=== PATIENT | male | born 1965 | race American Indian/Alaskan Native ===

== ENCOUNTER 2016-04-29 19:20 | Emergency (ER) | payer MEDICAID ==
[2016-04-29] MEDS ORDERED: NORCO 5/325 PO ONE (20:05)
[2016-04-29] MEDS ORDERED: CLEOCIN PO ONE (20:06)
[2016-04-29] MEDS ORDERED: VIBRAMYCIN PO ONE (20:11)
--- NOTE | 2016-04-29 20:15 | Emergency Department Report ---
HPI - General Chief Complaint: Extremity Injury, Lower Time Seen by Provider: 04/29/16 19:43 - HPI HPI: The patient is a 51-year-old male presents for evaluation of pain and swelling to the left lower leg. The patient reports constant stinging and burning in quality pain to the anterior distal left lower leg for the past 2 days, moderate in severity, and associated with redness and intermittent weeping of fluid. The patient says that he has experienced lower extremity ulcers in the past. The patient denies fever, chills, night sweats, paresthesias, decreased motor function, color change distal to the left leg area of concern. ED Past Medical Hx - Past Medical History Previous Medical History?: Yes Hx Hypertension: Yes Hx CVA: Yes (nonambulatory, left-sided hemiplegia, slurred speech) Hx Congestive Heart Failure: Yes (dilated cardiomyopathy) Hx Diabetes: Yes Hx Asthma: No Hx COPD: Yes (on home oxygen at 2L/M) Hx HIV: No - Surgical History Past Surgical History?: Yes Additional Surgical History: IVC filter - Social History Smoking Status: Current Every Day Smoker - Medications Home Medications: Home Medications Medication Instructions Recorded Confirmed Last Taken Type Albuterol *Only Ed* [Proventil 1 puff INHALATION TID PRN 01/22/13 12/27/14 Unknown History 0.5% NEBS] Atorvastatin (Nf) [Lipitor] 10 mg PO QHS 01/22/13 12/27/14 05/09/14 History Furosemide [Lasix] 40 mg PO DAILY 01/22/13 12/27/14 05/10/14 History Insulin Glargine,Hum.rec.anlog 14 units SQ QHS PRN 01/22/13 12/27/14 Unknown History [Lantus Solostar] Lisinopril [Zestril TAB] 40 mg PO QDAY 01/22/13 12/27/14 05/10/14 History levETIRAcetam [Keppra XR TAB] 500 mg PO BID 01/22/13 12/27/14 05/10/14 History ALPRAZolam [Xanax TAB] 1 mg PO BID PRN 05/10/14 12/27/14 05/10/14 History Clopidogrel [Plavix] 75 mg PO QDAY 05/10/14 12/27/14 05/10/14 History glipiZIDE [Glucotrol] 10 mg PO QDAY 05/10/14 12/27/14 05/10/14 History Furosemide [Lasix TAB] 40 mg PO DAILY #30 tablet 07/31/14 12/27/14 Unknown Rx Metoprolol [Lopressor TAB] 75 mg PO BID #60 tablet 07/31/14 12/27/14 Unknown Rx hydrALAZINE [Apresoline TAB] 50 mg PO Q8HR #90 tablet 07/31/14 12/27/14 Unknown Rx Warfarin [Coumadin] 7.5 mg PO DAILY@1700 #30 tablet 01/03/15 Unknown Rx Dicyclomine [Bentyl] 10 mg PO QID PRN #20 capsule 01/18/15 Unknown Rx Nitrofurantoin [place]/M-Cryst 100 mg PO Q12HR #13 capsule 01/18/15 Unknown Rx [Macrobid CAP] Ondansetron [Zofran Odt] 4 mg PO QID PRN #20 tab.rapdis 01/18/15 Unknown Rx oxyCODONE /ACETAMINOPHEN [Percocet 1 tab PO Q6HR PRN #20 tablet 01/21/15 Unknown Rx 5/325] Clindamycin [Clindamycin CAP] 300 mg PO TID #30 capsule 04/29/16 Unknown Rx Doxycycline Hyclate [Acticlate TAB] 75 mg PO BID #20 tablet 04/29/16 Unknown Rx HYDROcodone/APAP 7.5-325 [[place] 1 each PO Q8HR PRN #12 tablet 04/29/16 Unknown Rx 7.5-325 mg TAB] ED Review of Systems ROS: Stated complaint: WEEPING SORES Other details as noted in HPI Constitutional: denies: fever ENT: denies: throat or neck pain Respiratory: denies: cough, shortness of breath Cardiovascular: denies: chest pain Endocrine: denies unexplained weight loss or gain Gastrointestinal: denies: abdominal pain, nausea Genitourinary: denies: dysuria Musculoskeletal: reports left leg pain Skin: denies: rash Neurological: denies: headache Hematological/Lymphatic: denies: easy bleeding or easy bruising Psych: denies sadness or hopelessness Physical Exam - Physical Exam Vital Signs: Vital Signs 04/29/16 19:43 Temperature 98.6 F Pulse Rate 93 H Respiratory 18 Rate Blood Pressure 140/77 O2 Sat by Pulse 93 Oximetry Physical Exam: General: well-nourished, well-developed, no acute distress Head: Normocephalic, atraumatic Eyes: normal sclera ENT: Mucous membranes are pink and moist Neck: trachea midline, neck supple, No neck stiffness, no cervical adenopathy Respiratory: Breath sounds equal bilaterally, no wheezing, rales, or rhonchi Cardio: S1 and S2 present, no murmurs, rubs, gallops, capillary refill is brisk Abdomen: Normoactive bowel sounds, soft abdomen, no rigidity, no guarding or rebound tenderness Musc: 2 cm x 3 cm oval area of erythema present to the left distal anterior zimmerman , tender to palpation, no purulent drainage or discharge, no fluctuance Skin: No rash Neuro: no facial drooping, normal speech Psych: Normal affect ED Course Vital Signs 04/29/16 19:43 Temperature 98.6 F Pulse Rate 93 H Respiratory 18 Rate Blood Pressure 140/77 O2 Sat by Pulse 93 Oximetry ED Medical Decision Making - Medical Decision Making The patient was seen and examined by myself. The patient is placed on a monitor and storage bin tender and continuous pulse ox. On initial evaluation, the patient was found to be in no distress. Evaluation orders were placed. The patient given a Tylenol of [place] for his pain and clindamycin and doxycycline for treatment of cellulitis. The patient was reevaluated and reported that their symptoms were markedly improved. The patient is stable for discharge with outpatient follow- up. The patient is given follow-up and return instructions. The patient expressed understanding and agreed with the plan. The patient is discharged in stable condition. Critical care attestation.: If time is entered above; I have spent that time in minutes in the direct care of this critically ill patient, excluding procedure time. ED Disposition Clinical Impression: Cellulitis of left anterior lower leg Disposition: DISCHARGED TO HOME OR SELFCARE Is pt being admited?: No Does the pt Need Aspirin: No Condition: Stable Instructions: Cellulitis (ED) Prescriptions: Clindamycin [Clindamycin CAP] 300 mg PO TID #30 capsule Doxycycline Hyclate [Acticlate TAB] 75 mg PO BID #20 tablet HYDROcodone/APAP 7.5-325 [[place] 7.5-325 mg TAB] 1 each PO Q8HR PRN #12 tablet PRN Reason: Pain Referrals: PRIMARY CARE, [Primary Care Provider] - 3-5 Days Time of Disposition: 20:11
[2016-04-29] MEDS ORDERED: NORCO 5/325 ONE (22:25)
[2016-04-29] MEDS ORDERED: VIBRAMYCIN ONE (22:28)
[2016-04-29 23:52] VITALS: BP 178/96
== END 2016-04-30 00:08 | disposition home or self-care (01) ==
LOC: ED 19:20
DX: L02.416 Cutaneous abscess of left lower limb (principal); I10 Essential (primary) hypertension; Z86.73 Personal history of transient ischemic attack (TIA), and cerebral infarction without residual deficits; E11.9 Type 2 diabetes mellitus without complications; I42.9 Cardiomyopathy, unspecified; F17.200 Nicotine dependence, unspecified, uncomplicated; Z79.4 Long term (current) use of insulin
CPT/HCPCS: 99283

== ENCOUNTER 2016-10-10 20:27 | Inpatient (IN) | payer MEDICAID ==
[2016-10-10 21:21] LABS: Bilirubin,Urine NEG (Negative); Blood,Urine SM (Negative); Ketones,Urine NEG (Negative); Leukocyte Esterase,Urine NEG (Negative); Nitrite,Urine NEG (Negative)
[2016-10-10 21:22] LABS: Protein,Urine >500 mg/dL (Negative)
[2016-10-10 21:39] LABS: Basophils % (Auto) 0.9 % (0.0-1.8); Eosinophils % (Auto) 6.8 % (0.0-4.3); Hemoglobin 13.4 gm/dl (11.8-15.2); Mean Corpuscular HGB Conc 33 % (32-34); Mean Corpuscular Hemoglobin 29 pg (28-32); Mean Corpuscular Volume 90 fl (84-94); Platelet Count 186 K/mm3 (140-440); Red Blood Count 4.59 M/mm3 (3.65-5.03); Red Cell Distribution Width 14.9 % (13.2-15.2)
--- NOTE | 2016-10-10 21:49 | Emergency Department Report ---
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 Patient has a history of dilated cardiomyopathy, COPD, previous history of CVA with left- sided hemiplegia and chronic slurred speech, insulin and diabetes and hypertension. He denies any shortness of breath, chest pain, fever. He has not taken anything and was not given anything for her symptoms prior to presentation. No recent travel or sick contacts at home. ED Past Medical Hx - Past Medical History Hx Hypertension: Yes Hx CVA: Yes (nonambulatory, left-sided hemiplegia, slurred speech) Hx Congestive Heart Failure: Yes (dilated cardiomyopathy) Hx Diabetes: Yes Hx Asthma: No Hx COPD: Yes (on home oxygen at 2L/M) Hx HIV: No - Surgical History Additional Surgical History: IVC filter - Social History Smoking Status: Never Smoker Substance Use Type: None - Medications Home Medications: Home Medications Medication Instructions Recorded Confirmed Last Taken Type Albuterol *Only Ed* [Proventil 1 puff INHALATION TID PRN 01/22/13 10/11/16 Unknown History 0.5% NEBS] Atorvastatin (Nf) [Lipitor] 10 mg PO QHS 01/22/13 10/11/16 05/09/14 History Furosemide [Lasix] 40 mg PO DAILY 01/22/13 10/11/16 05/10/14 History Insulin Glargine,Hum.rec.anlog 14 units SQ QHS PRN 01/22/13 10/11/16 Unknown History [Lantus Solostar] Lisinopril [Zestril TAB] 40 mg PO QDAY 01/22/13 10/11/16 05/10/14 History levETIRAcetam [Keppra XR TAB] 500 mg PO BID 01/22/13 10/11/16 05/10/14 History ALPRAZolam [Xanax TAB] 1 mg PO BID PRN 05/10/14 10/11/16 05/10/14 History Clopidogrel [Plavix] 75 mg PO QDAY 05/10/14 10/11/16 05/10/14 History glipiZIDE [Glucotrol] 10 mg PO QDAY 05/10/14 10/11/16 05/10/14 History Metoprolol [Lopressor TAB] 75 mg PO BID #60 tablet 07/31/14 10/11/16 Unknown Rx hydrALAZINE [Apresoline TAB] 50 mg PO Q8HR #90 tablet 07/31/14 10/11/16 Unknown Rx Warfarin [Coumadin] 7.5 mg PO DAILY@1700 #30 tablet 01/03/15 10/11/16 Unknown Rx Dicyclomine [Bentyl] 10 mg PO QID PRN #20 capsule 01/18/15 10/11/16 Unknown Rx Nitrofurantoin [place]/M-Cryst 100 mg PO Q12HR #13 capsule 01/18/15 10/11/16 Unknown Rx [Macrobid CAP] Ondansetron [Zofran Odt] 4 mg PO QID PRN #20 tab.rapdis 01/18/15 10/11/16 Unknown Rx oxyCODONE /ACETAMINOPHEN [Percocet 1 tab PO Q6HR PRN #20 tablet 01/21/15 Unknown Rx 5/325] Clindamycin [Clindamycin CAP] 300 mg PO TID #30 capsule 04/29/16 10/11/16 Unknown Rx Doxycycline Hyclate [Acticlate TAB] 75 mg PO BID #20 tablet 04/29/16 10/11/16 Unknown Rx HYDROcodone/APAP 7.5-325 [[place] 1 each PO Q8HR PRN #12 tablet 04/29/16 10/11/16 Unknown Rx 7.5-325 mg TAB] ED Review of Systems ROS: Stated complaint: HYPERGLYCEMIA Other details as noted in HPI Comment: All other systems reviewed and negative Constitutional: denies: chills, fever Eyes: denies: eye pain, eye discharge, vision change ENT: denies: ear pain, throat pain Respiratory: denies: cough, shortness of breath, wheezing Cardiovascular: edema. denies: chest pain, palpitations Gastrointestinal: denies: abdominal pain, nausea, diarrhea Genitourinary: denies: urgency, dysuria Musculoskeletal: denies: back pain, joint swelling, arthralgia Skin: denies: rash, lesions Neurological: denies: headache, weakness, paresthesias Physical Exam - Physical Exam Vital Signs: Vital Signs 10/10/16 10/10/16 20:46 21:11 Temperature 98.3 F Pulse Rate 84 Respiratory 20 20 Rate Blood Pressure 158/92 Blood Pressure 158/92 [Left] O2 Sat by Pulse 95 95 Oximetry Physical Exam: GENERAL: The patient is well-developed well-nourished. HEENT: Normocephalic. Atraumatic. Extraocular motions are intact. Patient has moist mucous membranes. Pupils equal reactive to light bilaterally. NECK: Supple. Trachea is midline. CHEST/LUNGS: Clear to auscultation. There is no respiratory distress noted. HEART/CARDIOVASCULAR: Regular. There is no tachycardia. There is no gallop rub or murmur. ABDOMEN: Abdomen is soft, nontender. Patient has normal bowel sounds. There is no abdominal distention. SKIN: There is 2-3+ pitting edema that is worse on the left side. NEURO: The patient is awake, alert. The patient is cooperative. The patient has no acute focal neurologic deficits. Patient has some slurred speech but it is chronic. MUSCULOSKELETAL: There is no tenderness or deformity. Patient has chronic hemiplegia. There is no evidence of acute injury. ED Course Vital Signs 10/10/16 10/10/16 20:46 21:11 Temperature 98.3 F Pulse Rate 84 Respiratory 20 20 Rate Blood Pressure 158/92 Blood Pressure 158/92 [Left] O2 Sat by Pulse 95 95 Oximetry ED Medical Decision Making - Lab Data Result diagrams: 10/11/16 11:34 10/11/16 Unknown - EKG Data -: EKG Interpreted by Me EKG shows normal: sinus rhythm, axis, intervals, QRS complexes, ST-T waves ( there is some mild ST depressions and T-wave inversions to the inferior and lateral leads that are unchanged from previous) Rate: normal - EKG Data When compared to previous EKG there are: no significant change Interpretation: unchanged when compared t (12/27/14) - Radiology Data Radiology results: report reviewed, image reviewed interpreted by me: Chest x-ray shows some cardiomegaly but there is no pleural effusions or obvious pneumonia. Bilateral lower extremity DVT shows an acute right DVT Starting in the right common femoral vein and going down through the popliteal into the posterior tibial vein. There are also multiple chronic DVT seen. - Medical Decision Making This patient presented with complaint of hyperglycemia and lower extremity swelling. He has a history of DVT and PE and is unemployed 22nd or 2 previous CVA. He does not appear to have any exacerbation of CHF as there is no shortness of breath, no pleural effusions and his BNP is about 300. He did have elevated blood sugar at about 370 but was given a dose of subcutaneous insulin and it came down to a reasonable level. There is no signs of DKA or HHNK. However the patient was subtherapeutic on his Coumadin with an INR less than 1. I arranged for the patient to have a venous Doppler done in the morning with the instructions that if it was positive he would be admitted and if negative he could be discharged home. He was found to have a right-sided DVT from the common femoral down to the posterior tibial. Patient was admitted for further evaluation and treatment. - Differential Diagnosis DVT, CHF, DKA, HHNK Critical Care Time: No Critical care attestation.: If time is entered above; I have spent that time in minutes in the direct care of this critically ill patient, excluding procedure time. 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
[2016-10-10 22:10] LABS: Anion Gap 18 mmol/L; Blood Urea Nitrogen 7 mg/dL (9-20); Calcium 8.8 mg/dL (8.4-10.2); Carbon Dioxide 21 mmol/L (22-30); Chloride 98.3 mmol/L (98-107); Glucose 387 mg/dL (75-100); Potassium 3.4 mmol/L (3.6-5.0); Sodium 134 mmol/L (137-145)
[2016-10-11 01:25] LABS: INR 0.95 (0.87-1.13)
[2016-10-11 01:26] LABS: Partial Thromboplastin Time 27.7 Sec. (24.2-36.6)
[2016-10-11] MEDS ORDERED: APRESOLINE PO ONE (06:13)
[2016-10-11] MEDS ORDERED: LOPRESSOR IV ONE ×2 (08:12)
--- NOTE | 2016-10-11 09:23 | XRay Report ---
AP CHEST : 10/10/16 20:27:00 CLINICAL: Hypertension. COMPARISON:12/27/14 FINDINGS: Cardiomegaly and central vascular congestion. The lungs are normally expanded and clear. The bones and soft tissues are unremarkable. IMPRESSION: Cardiomegaly and pulmonary venous hypertension. No pulmonary edema.
[2016-10-11] MEDS ORDERED: HEPARIN 10,000 UNITS/10 ML IV ONE (11:08)
[2016-10-11 12:00] LABS: Hematocrit 39.9 % (35.5-45.6); Hemoglobin 12.9 gm/dl (11.8-15.2)
[2016-10-11 12:12] LABS: INR 0.96 (0.87-1.13)
[2016-10-11 12:13] LABS: Partial Thromboplastin Time 26.9 Sec. (24.2-36.6)
[2016-10-11] MEDS ORDERED: D50W (25GM) IV PRN (12:43)
[2016-10-11] MEDS ORDERED: PERCOCET 5/325 PO PRN ×2 (12:53→13:12)
[2016-10-11] MEDS ORDERED: NORCO 7.5/325 PO PRN (12:53)
[2016-10-11] MEDS ORDERED: NON-FORMULARY (Insulin Glargine,Hum.Rec.Anlog [Lantus Solostar] 15 UNITS) SQ PRN (12:53)
[2016-10-11] MEDS ORDERED: XANAX PO PRN (12:53)
[2016-10-11] MEDS ORDERED: LOPRESSOR PO SCH ×2 (13:00→14:00)
[2016-10-11] MEDS ORDERED: LOPRESSOR ONE (13:10)
[2016-10-11] MEDS ORDERED: MACROBID ONE (13:11)
[2016-10-11] MEDS ORDERED: HEPARIN 10,000 UNITS/10 ML ONE (13:13)
[2016-10-11] MEDS ORDERED: HEPARIN/ 0.45% NACL-25,000 UNIT/500 ML 25,000 UNIT/500 ML BAG ONE (13:15)
[2016-10-11] MEDS ORDERED: NACL 0.45% 1000 ML 1,000 ML IV ONE (13:16)
--- NOTE | 2016-10-11 13:22 | History and Physical Report ---
History of Present Illness Date of examination: 10/11/16 Date of admission: 10/11/16 12:57 Chief complaint: pain in the legs - 1 day History of present illness: Patient is a 16-year-old -Citizen Of [place] male who was a history of cerebrovascular accident 10 with left hemiplegia and chronic slow speech, COPD on home oxygen at 2 L/min, CHF, hypertension, diabetes mellitus and severe dysphagia having pain and swelling in both lower extremities. 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 Patient was brought to the emergency department. Venous Dopplers of lower extremities showed an acute DVT in the right common femoral and superficial femoral veins extending to the popliteal. Patient denies any chest pain or shortness of breath. No proximal nocturnal dyspnea. No orthopnea paroxysmal nocturnal dyspnea. Admission was therefore requested. Past History Past Medical History: CAD, COPD, diabetes, hypertension, hyperlipidemia, stroke Past Surgical History: Other Social history: smoking. denies: alcohol abuse, prescription drug abuse Medications and Allergies Allergies Allergy/AdvReac Type Severity Reaction Status Date / Time No Known Allergies Allergy Unverified 01/22/13 16:47 Home Medications Medication Instructions Recorded Confirmed Last Taken Type Albuterol *Only Ed* [Proventil 1 puff INHALATION TID PRN 01/22/13 10/11/16 Unknown History 0.5% NEBS] Atorvastatin (Nf) [Lipitor] 10 mg PO QHS 01/22/13 10/11/16 05/09/14 History Furosemide [Lasix] 40 mg PO DAILY 01/22/13 10/11/16 05/10/14 History Insulin Glargine,Hum.rec.anlog 14 units SQ QHS PRN 01/22/13 10/11/16 Unknown History [Lantus Solostar] Lisinopril [Zestril TAB] 40 mg PO QDAY 01/22/13 10/11/16 05/10/14 History levETIRAcetam [Keppra XR TAB] 500 mg PO BID 01/22/13 10/11/16 05/10/14 History ALPRAZolam [Xanax TAB] 1 mg PO BID PRN 05/10/14 10/11/16 05/10/14 History Clopidogrel [Plavix] 75 mg PO QDAY 05/10/14 10/11/16 05/10/14 History glipiZIDE [Glucotrol] 10 mg PO QDAY 05/10/14 10/11/16 05/10/14 History Metoprolol [Lopressor TAB] 75 mg PO BID #60 tablet 07/31/14 10/11/16 Unknown Rx hydrALAZINE [Apresoline TAB] 50 mg PO Q8HR #90 tablet 07/31/14 10/11/16 Unknown Rx Warfarin [Coumadin] 7.5 mg PO DAILY@1700 #30 tablet 01/03/15 10/11/16 Unknown Rx Dicyclomine [Bentyl] 10 mg PO QID PRN #20 capsule 01/18/15 10/11/16 Unknown Rx Nitrofurantoin [place]/M-Cryst 100 mg PO Q12HR #13 capsule 01/18/15 10/11/16 Unknown Rx [Macrobid CAP] Ondansetron [Zofran Odt] 4 mg PO QID PRN #20 tab.rapdis 01/18/15 10/11/16 Unknown Rx oxyCODONE /ACETAMINOPHEN [Percocet 1 tab PO Q6HR PRN #20 tablet 01/21/15 Unknown Rx 5/325] Clindamycin [Clindamycin CAP] 300 mg PO TID #30 capsule 04/29/16 10/11/16 Unknown Rx Doxycycline Hyclate [Acticlate TAB] 75 mg PO BID #20 tablet 04/29/16 10/11/16 Unknown Rx HYDROcodone/APAP 7.5-325 [[place] 1 each PO Q8HR PRN #12 tablet 04/29/16 10/11/16 Unknown Rx 7.5-325 mg TAB] Active Meds: Active Medications Acetaminophen/Hydrocodone Bitart ([place] 7.5/325) 1 each PO Q8HR PRN PRN Reason: Pain Alprazolam (Xanax) 1 mg PO BID PRN PRN Reason: Anxiety Atorvastatin Calcium (Lipitor) 10 mg PO QHS JAVED Clindamycin HCl (Cleocin) 300 mg PO TID JAVED Clopidogrel Bisulfate (Plavix) 75 mg PO QDAY JAVED Dextrose (D50w (25gm)) 50 ml IV PRN PRN PRN Reason: Hypoglycemia Glipizide (Glucotrol) 10 mg PO QDDIAB JAVED Hydralazine HCl (Apresoline) 50 mg PO Q8HR [facility] Heparin Sodium/Sodium Chloride (Heparin/ 0.45% Nacl-25,000 Unit/500 Ml) 25,000 unit in 500 mls @ 30 mls/hr IV TITR JAVED; 1,500 UNITS/HR PRN Reason: Protocol Sodium Chloride (Nacl 0.45% 1000 Ml) 1,000 mls @ 100 mls/hr IV DIRECT JAVED Insulin Aspart (Novolog) 0 units SUB-Q ACHS JAVED PRN Reason: Protocol Insulin Detemir (Levemir) 15 units SUB-Q QHS PRN PRN Reason: HYPERGLYCEMIA Lisinopril (Zestril) 40 mg PO QDAY JAVED Metoprolol Tartrate (Lopressor) 75 mg PO BID JAVED Miscellaneous Medication (Levetiracetam [Keppra Xr Tab]) 500 mg PO BID JAVED Nitrofurantoin Macrocrystals (Macrobid) 100 mg PO Q12HR JAVED Oxycodone/Acetaminophen (Percocet 5/325) 1 tab PO Q6H PRN PRN Reason: Pain Review of systems Constitutional: Well Nouridhed and Well developed. Head: NC/ AT Eyes: Denies any visual impairments. No discharge from the eyes Nose: Denies any rhinorrhea or epistaxis Throats: Denies any post nasal drainage. Ears: Denies any hearing deficits Cardiovascular system: Denies any chest pain, shortness of breath, orthopnea, paroxysmal nocturnal dyspnea, or palpitation. Respiratory system: Denies any cough, difficulty breathing, wheezing, pleuritic chest pain, Gastrointestinal system: Denies any abdominal pain, nausea vomiting, hematemesis or melena. Neurological system: Denies any headache, slurred speech, facial droop, lateralizing weakness Genitalia system: Denies any dysuria, urinary frequency or urgency, urethral discharge Skin: No rashes, hyperpigmented spots. Hematological: Denies any cervical tenderness hemorrhages or petechia. Immunological: Denies any multiple septic spots, Lymphatic: Denies any generalized lymphadenopathy. Endocrine: Denies any polyuria, polydipsia, polyphagia. No heat or cold intolerance. Musculoskeletal system: Swelling of both lower extremities with pain . Psych: No visual, tactile, auditory or hallucination Exam - Constitutional Vitals: Temp Pulse Resp BP Pulse Ox 98.6 F 70 10 L 184/106 98 10/11/16 08:30 10/11/16 12:50 10/11/16 12:50 10/11/16 12:50 10/11/16 12:50 General appearance: Present: no acute distress, well-nourished - EENT Eyes: Present: PERRL ENT: hearing intact, clear oral mucosa - Neck Neck: Present: supple, normal ROM - Respiratory Respiratory effort: normal Respiratory: bilateral: CTA - Cardiovascular Heart Sounds: Present: S1 & S2. Absent: rub, click - Extremities Extremities: pulses symmetrical, No edema Peripheral Pulses: within normal limits - Abdominal General gastrointestinal: Present: soft, non-tender, non-distended, normal bowel sounds Male genitourinary: Present: normal - Integumentary Integumentary: Present: clear, warm, dry - Musculoskeletal Musculoskeletal: gait normal, strength equal bilaterally - Psychiatric Psychiatric: appropriate mood/affect, intact judgment & insight - Neurologic Neurologic: CNII-XII intact, moves all extremities Results - Labs CBC & Chem 7: 10/11/16 11:34 10/10/16 21:06 Assessment and Plan - Acute DVT of the left common femoral, especially femoral and popliteal veins. Chronic DVT of the right femoral vein - Chronic obstructive pulmonary disease - Old stroke with residual left hemiplegia and chronic dysphagia - Hypertension- Plan Admit patient to telemetry Commence patient is heparin drip, obtain PT PTT INR Bronchodilators with oxygen to maintain his other (94 Continue patient on low-dose aspirin because of his multiple stroke Commence oral home antihypertensives medication GI prophylaxis with Pepcid. Patient already on heparin drip that was have also asked DVT prophylaxis Spent 32 minutes during this admission process and direct patient care evaluation of laboratory and radiological data and explanation of management plan to the patient
[2016-10-11] MEDS: HEPARIN/ 0.45% NACL-25,000 UNIT/500 ML 25,000 UNIT/500 ML BAG IV SCH (13:27)
[2016-10-11] MEDS: MACROBID PO SCH ×2 (13:35→23:08)
[2016-10-11] MEDS: PLAVIX PO SCH (13:35)
[2016-10-11] MEDS ORDERED: NACL 0.45% 1000 ML 1,000 ML IV SCH (14:00)
[2016-10-11] MEDS ORDERED: APRESOLINE PO SCH (14:00)
[2016-10-11 14:54] LABS: Albumin 2.7 g/dL (3.9-5); Albumin/Globulin Ratio 0.7 %; Alkaline Phosphatase 107 units/L (35-129); Blood Urea Nitrogen 5 mg/dL (9-20); Calcium 8.4 mg/dL (8.4-10.2); Carbon Dioxide 21 mmol/L (22-30); Glucose 181 mg/dL (75-100); Sodium 138 mmol/L (137-145); Total Protein 6.6 g/dL (6.3-8.2)
[2016-10-11 14:57] LABS: Alanine Aminotransferase 14 units/L (7-56); Anion Gap 17 mmol/L; Potassium 3.9 mmol/L (3.6-5.0)
[2016-10-11] MEDS: PROVENTIL IH SCH ×2 (16:27→23:30)
[2016-10-11] MEDS: CLEOCIN PO SCH ×2 (17:09→22:12)
[2016-10-11] MEDS: PEPCID IV SCH (17:10)
[2016-10-11] MEDS: GLUCOTROL PO SCH (17:10)
[2016-10-11] MEDS: KEPPRA PO SCH ×2 (17:10→22:11)
[2016-10-11] MEDS: NOVOLOG SUB-Q SCH ×2 (17:22→23:08)
[2016-10-11] MEDS ORDERED: K-DUR PO ONE (17:30)
[2016-10-11] MEDS ORDERED: CATAPRES PO SCH (18:00)
[2016-10-11] MEDS ORDERED: NACL ONE (19:30)
[2016-10-11] MEDS ORDERED: LEVEMIR SUB-Q PRN (22:00)
[2016-10-11] MEDS: APRESOLINE PO SCH (22:11)
[2016-10-11] MEDS: LEVEMIR SUB-Q SCH (23:07)
[2016-10-11] MEDS: LOPRESSOR PO SCH (23:13)
[2016-10-12] MEDS: HEPARIN/ 0.45% NACL-25,000 UNIT/500 ML 25,000 UNIT/500 ML BAG IV SCH ×2 (06:17→23:22)
[2016-10-12] MEDS: NOVOLOG SUB-Q SCH ×4 (07:35→22:19)
[2016-10-12] MEDS: PROVENTIL IH SCH ×2 (08:36→16:43)
[2016-10-12] MEDS: LOPRESSOR PO SCH ×3 (10:01→21:20)
[2016-10-12] MEDS: APRESOLINE PO SCH ×3 (10:01→21:19)
[2016-10-12] MEDS: PEPCID IV SCH (10:03)
[2016-10-12] MEDS: KEPPRA PO SCH ×2 (10:04→21:20)
[2016-10-12] MEDS: GLUCOTROL PO SCH (10:04)
[2016-10-12] MEDS: ZESTRIL PO SCH (10:04)
[2016-10-12] MEDS: PLAVIX PO SCH (10:04)
[2016-10-12] MEDS: MACROBID PO SCH ×2 (10:04→21:19)
[2016-10-12] MEDS: CLEOCIN PO SCH ×3 (10:04→21:19)
[2016-10-12 13:16] LABS: INR 1.12 (0.87-1.13)
[2016-10-12 13:24] LABS: Alanine Aminotransferase 12 units/L (7-56); Albumin 2.8 g/dL (3.9-5); Albumin/Globulin Ratio 0.8 %; Alkaline Phosphatase 96 units/L (35-129); Anion Gap 15 mmol/L; BUN/Creatinine Ratio 6.66; Blood Urea Nitrogen 4 mg/dL (9-20); Calcium 7.9 mg/dL (8.4-10.2); Carbon Dioxide 23 mmol/L (22-30); Glucose 184 mg/dL (75-100); Potassium 3.3 mmol/L (3.6-5.0); Sodium 138 mmol/L (137-145); Total Protein 6.1 g/dL (6.3-8.2)
--- NOTE | 2016-10-12 15:49 | Progress Note ---
Assessment and Plan Assessment and plan: --Acute DVT on the right CFV lower extremity; chronic DVT on the left CFV lower extremity Continue heparin drip per protocol, elevate the limb and supportive care Check CT angiogram of the chest to rule out PE --History of COPD; well compensated, oxygen nebulizers and IV steroids and antibiotics and supportive care --History of CVA with residual weakness, left hemiparesis and chronic dysphagia Continue current management --Hypertension; moderate control, resume home antihypertensives and when necessary medications --Type 2 diabetes mellitus; moderate control, Accu-Chek sliding scale coverage and ADA diet and insulin as needed, hemoglobin A1c --DVT prophylaxis, patient is already on heparin drip Closely monitor the patient and adjust management Follow CT angiogram of the chest, if abnormal consult interventional, vascular, hematology oncologist as needed --Full CODE STATUS Heart a CT angiogram chest, we will consider long-term Eliquis on Coumadin --Discharge planning. per Case management Patient's condition treatment plan discussed in detail with the patient as well as his nurse Medical records reviewed History Interval history: Patient seen and evaluated in his room this morning medical records reviewed Feels slightly better, alert awake oriented 3 not in acute distress Vitals reviewed Hospitalist Physical - Constitutional Vitals: Temp Pulse Resp BP Pulse Ox 98.2 F 56 L 20 155/90 100 10/12/16 12:28 10/12/16 12:28 10/12/16 12:28 10/12/16 12:28 10/12/16 08:55 General appearance: Present: mild distress, well-nourished - EENT Eyes: Present: PERRL, EOM intact - Neck Neck: Present: supple, normal ROM - Respiratory Respiratory effort: normal Respiratory: negative: rales, rhonchi, wheezing - Cardiovascular Rhythm: regular Heart Sounds: Present: S1 & S2 - Extremities Extremities: no ischemia, No edema - Abdominal General gastrointestinal: soft, non-tender, non-distended, normal bowel sounds - Integumentary Integumentary: Present: clear, warm - Psychiatric Psychiatric: appropriate mood/affect, cooperative - Neurologic Neurologic: CNII-XII intact, moves all extremities Results - Labs CBC & Chem 7: 10/11/16 11:34 10/12/16 12:47 Labs: Laboratory Last Values WBC 4.0 K/mm3 (4.5-11.0) L 10/10/16 21:06 RBC 4.59 M/mm3 (3.65-5.03) 10/10/16 21:06 Hgb 12.9 gm/dl (11.8-15.2) 10/11/16 11:34 Hct 39.9 % (35.5-45.6) 10/11/16 11:34 MCV 90 fl (84-94) 10/10/16 21:06 MCH 29 pg (28-32) 10/10/16 21:06 MCHC 33 % (32-34) 10/10/16 21:06 RDW 14.9 % (13.2-15.2) 10/10/16 21:06 Plt Count 170 K/mm3 (140-440) 10/11/16 11:34 Lymph % (Auto) 28.1 % (13.4-35.0) 10/10/16 21:06 [place] % (Auto) 12.4 % (0.0-7.3) H 10/10/16 21:06 Eos % (Auto) 6.8 % (0.0-4.3) H 10/10/16 21:06 Baso % (Auto) 0.9 % (0.0-1.8) 10/10/16 21:06 Lymph # 1.1 K/mm3 (1.2-5.4) L 10/10/16 21:06 [place] # 0.5 K/mm3 (0.0-0.8) 10/10/16 21:06 Eos # 0.3 K/mm3 (0.0-0.4) 10/10/16 21:06 Baso # 0.0 K/mm3 (0.0-0.1) 10/10/16 21:06 Seg Neutrophils % 51.8 % (40.0-70.0) 10/10/16 21:06 Seg Neutrophils # 2.1 K/mm3 (1.8-7.7) 10/10/16 21:06 PT 15.0 Sec. (12.2-14.9) H 10/12/16 12:47 INR 1.12 (0.87-1.13) 10/12/16 12:47 APTT 26.9 Sec. (24.2-36.6) 10/11/16 11:34 Heparin Anti-Xa Level 0.54 U.I./ml (0.3-0.7) 10/11/16 19:52 VBG pH 7.368 (7.320-7.420) 10/10/16 21:30 Sodium 138 mmol/L (137-145) 10/12/16 12:47 Potassium 3.3 mmol/L (3.6-5.0) L 10/12/16 12:47 Chloride 103.0 mmol/L (98-107) 10/12/16 12:47 Carbon Dioxide 23 mmol/L (22-30) 10/12/16 12:47 Anion Gap 15 mmol/L 10/12/16 12:47 BUN 4 mg/dL (9-20) L 10/12/16 12:47 Creatinine 0.6 mg/dL (0.8-1.5) L 10/12/16 12:47 Estimated GFR > 60 ml/min 10/12/16 12:47 BUN/Creatinine Ratio 6.66 % 10/12/16 12:47 Glucose 184 mg/dL (75-100) H 10/12/16 12:47 POC Glucose 191 (70-105) H 10/12/16 11:21 Hemoglobin A1c 11.5 % (4-6) H 10/11/16 11:34 Calcium 7.9 mg/dL (8.4-10.2) L 10/12/16 12:47 Total Bilirubin 1.90 mg/dL (0.1-1.2) H 10/12/16 12:47 AST 15 units/L (5-40) 10/12/16 12:47 ALT 12 units/L (7-56) 10/12/16 12:47 Alkaline Phosphatase 96 units/L (35-129) 10/12/16 12:47 NT-Pro-B Natriuret Pep 382.2 pg/mL (0-900) 10/10/16 21:06 Total Protein 6.1 g/dL (6.3-8.2) L 10/12/16 12:47 Albumin 2.8 g/dL (3.9-5) L 10/12/16 12:47 Albumin/Globulin Ratio 0.8 % 10/12/16 12:47 Triglycerides 77 mg/dL (2-149) 10/11/16 Unknown Cholesterol 155 mg/dL (50-199) 10/11/16 Unknown LDL Cholesterol Direct 87 mg/dL (50-130) 10/11/16 Unknown HDL Cholesterol 53 mg/dL (40-59) 10/11/16 Unknown Cholesterol/HDL Ratio 2.92 % 10/11/16 Unknown Urine Color Yellow (Yellow) 10/10/16 21:10 Urine Turbidity Clear (Clear) 10/10/16 21:10 Urine pH 5.0 (5.0-7.0) 10/10/16 21:10 Ur Specific [place] 1.031 (1.003-1.030) H 10/10/16 21:10 Urine Protein >500 mg/dL (Negative) 10/10/16 21:10 Urine Glucose (UA) >=500 mg/dL (Negative) 10/10/16 21:10 Urine Ketones Neg mg/dL (Negative) 10/10/16 21:10 Urine Blood Sm (Negative) 10/10/16 21:10 Urine Nitrite Neg (Negative) 10/10/16 21:10 Urine Bilirubin Neg (Negative) 10/10/16 21:10 Urine Urobilinogen 4.0 mg/dL (<2.0) 10/10/16 21:10 Ur Leukocyte Esterase Neg (Negative) 10/10/16 21:10 Urine WBC (Auto) 1.0 /HPF (0.0-6.0) 10/10/16 21:10 Urine RBC (Auto) 1.0 /HPF (0.0-6.0) 10/10/16 21:10 U Epithel Cells (Auto) < 1.0 /HPF (0-13.0) 10/10/16 21:10 Urine Creatinine 171.2 mg/dL (0.1-20.0) H 10/11/16 13:30 Urine Microalbumin 333.9 mg/dL (0.1-34.0) H 10/11/16 13:30 Microalb/Creat Ratio 1950.3 ug/mg 10/11/16 13:30
[2016-10-12 19:15] LABS: Hemoglobin 13.6 gm/dl (11.8-15.2); Mean Corpuscular HGB Conc 32 % (32-34); Mean Corpuscular Hemoglobin 29 pg (28-32); Mean Corpuscular Volume 90 fl (84-94); Platelet Count 166 K/mm3 (140-440); Red Blood Count 4.69 M/mm3 (3.65-5.03); Red Cell Distribution Width 14.7 % (13.2-15.2); White Blood Count 4.3 K/mm3 (4.5-11.0)
[2016-10-12] MEDS ORDERED: PROVENTIL IH PRN (20:44)
[2016-10-12] MEDS: LEVEMIR SUB-Q SCH (22:20)
--- NOTE | 2016-10-13 04:37 | Admit Criteria Form ---
Admission Criteria Documentation: HYPERTENSION Clinical Indications for Admission to Inpatient Care ( [place]/check or initial the applicable condition/criteria) Admission is indicated for 1 or more of the following(1)(2)(3)(4)(5)(6)(7)(8)(9) (10): [ ]I. Hypertensive emergency, with evidence of acute and progressing target organ disease as indicated by 1 or more of the following: [ ]a) Hypertensive encephalopathy (e.g., confusion, altered mental status) (11) [ ]b) Cerebral infarction [ ]c) Intracranial hemorrhage [ ]d) Myocardial ischemia or infarction [ ]e) Heart failure (eg. Pulmonary edema) [ ]f) Aortic dissection [ ]g) Increased creatinine (new) with reduction of more than 50% in estimated glomerular filtration rate from baseline [ ]h) Seizure [ ]i) Papilledema [ ]j) Retinal hemorrhage [ ]k) Microangiopathic hemolytic anemia [ ]l) Other significant finding secondary to hypertension [ ]II. Adrenergic or sympathomimetic crisis (e.g., severe hypertension due to pheochromocytoma crisis, cocaine, phencyclindine, or amphetamine intoxication, or clonidine withdrawal) [X]III. Severe hypertension (SBP greater than 180 mmHg or DBP greater than 110 mmHg or greater than the 95th percentile for age, gender, and height in pediatric patients) that cannot be controlled (e.g., to SBP less than 160 mmHg and DBP less than 100 mmHg in adults) by treatment with oral medication in emergency department or observation care (12) Extended stay beyond goal length of staymay be needed for(21)(22): [ ]a) Persistent hypertensive encephalopathy [ ]b) Continuation of pulmonary edema [ ]c) Recurring or persistent severe hypertension [ ]d) Target organ damage (eg, angina, stroke, aortic dissection) The original [employer] content created by [employer] has been revised. The portions of the content which have been revised are identified through the use of italic text or in bold, and [employer] has neither reviewed nor approved the modified material. All other unmodified content is copyright [employer]. Please see references footnoted in the original [employer] edition 2016 Admission Criteria Met: Yes
[2016-10-13 06:50] LABS: Hematocrit 37.7 % (35.5-45.6); Hemoglobin 12.6 gm/dl (11.8-15.2)
[2016-10-13] MEDS: NOVOLOG SUB-Q SCH ×4 (07:30→23:43)
--- NOTE | 2016-10-13 08:02 | Progress Note ---
Assessment and Plan Assessment and plan: --Acute DVT on the right CFV lower extremity; chronic DVT on the left CFV lower extremity Continue heparin drip per protocol, elevate the limb and supportive care CT angiogram negative for acute PE, check hypercoagulable panel And start on oral anticoagulants tomorrow --History of COPD; well compensated, oxygen nebulizers and IV steroids and antibiotics and supportive care --History of CVA with residual weakness, left hemiparesis and chronic dysphagia Continue current management --Hypertension; moderate control, resume home antihypertensives and when necessary medications --Type 2 diabetes mellitus; moderate control, Accu-Chek sliding scale coverage and ADA diet and insulin as needed, hemoglobin A1c --DVT prophylaxis, patient is already on heparin drip Closely monitor the patient and adjust management Follow CT angiogram of the chest, if abnormal consult interventional, vascular, hematology oncologist as needed --Full CODE STATUS --Discharge planning. per Case management Possible discharge in 1-2 days if stable History Interval history: Patient seen and evaluated in his room this morning medical records reviewed Feels slightly better, on heparin drip Vitals reviewed Hospitalist Physical - Constitutional Vitals: Temp Pulse Resp BP Pulse Ox 97.7 F 64 18 132/77 96 10/12/16 20:00 10/12/16 20:00 10/12/16 20:00 10/12/16 20:00 10/12/16 20:41 General appearance: Present: no acute distress, well-nourished - EENT Eyes: Present: PERRL, EOM intact - Neck Neck: Present: supple, normal ROM - Respiratory Respiratory effort: normal Respiratory: bilateral: diminished, negative: rales, rhonchi, wheezing - Cardiovascular Rhythm: regular Heart Sounds: Present: S1 & S2 - Extremities Extremities: no ischemia Extremity abnormal: edema - Abdominal General gastrointestinal: soft, non-tender, non-distended, normal bowel sounds - Integumentary Integumentary: Present: clear, warm - Psychiatric Psychiatric: appropriate mood/affect, cooperative - Neurologic Neurologic: CNII-XII intact, moves all extremities Results - Labs CBC & Chem 7: 10/13/16 04:40 10/12/16 12:47 Labs: Laboratory Last Values WBC 4.3 K/mm3 (4.5-11.0) L 10/12/16 18:14 RBC 4.69 M/mm3 (3.65-5.03) 10/12/16 18:14 Hgb 12.6 gm/dl (11.8-15.2) 10/13/16 04:40 Hct 37.7 % (35.5-45.6) 10/13/16 04:40 MCV 90 fl (84-94) 10/12/16 18:14 MCH 29 pg (28-32) 10/12/16 18:14 MCHC 32 % (32-34) 10/12/16 18:14 RDW 14.7 % (13.2-15.2) 10/12/16 18:14 Plt Count 170 K/mm3 (140-440) 10/13/16 04:40 Lymph % (Auto) 40.1 % (13.4-35.0) H 10/12/16 18:14 [place] % (Auto) 12.6 % (0.0-7.3) H 10/12/16 18:14 Eos % (Auto) 5.0 % (0.0-4.3) H 10/12/16 18:14 Baso % (Auto) 1.0 % (0.0-1.8) 10/12/16 18:14 Lymph # 1.7 K/mm3 (1.2-5.4) 10/12/16 18:14 [place] # 0.5 K/mm3 (0.0-0.8) 10/12/16 18:14 Eos # 0.2 K/mm3 (0.0-0.4) 10/12/16 18:14 Baso # 0.0 K/mm3 (0.0-0.1) 10/12/16 18:14 Seg Neutrophils % 41.3 % (40.0-70.0) 10/12/16 18:14 Seg Neutrophils # 1.8 K/mm3 (1.8-7.7) 10/12/16 18:14 PT 15.0 Sec. (12.2-14.9) H 10/12/16 12:47 INR 1.12 (0.87-1.13) 10/12/16 12:47 APTT 26.9 Sec. (24.2-36.6) 10/11/16 11:34 Heparin Anti-Xa Level 0.58 U.I./ml (0.3-0.7) 10/12/16 20:23 VBG pH 7.368 (7.320-7.420) 10/10/16 21:30 Sodium 138 mmol/L (137-145) 10/12/16 12:47 Potassium 3.3 mmol/L (3.6-5.0) L 10/12/16 12:47 Chloride 103.0 mmol/L (98-107) 10/12/16 12:47 Carbon Dioxide 23 mmol/L (22-30) 10/12/16 12:47 Anion Gap 15 mmol/L 10/12/16 12:47 BUN 4 mg/dL (9-20) L 10/12/16 12:47 Creatinine 0.6 mg/dL (0.8-1.5) L 10/12/16 12:47 Estimated GFR > 60 ml/min 10/12/16 12:47 BUN/Creatinine Ratio 6.66 % 10/12/16 12:47 Glucose 184 mg/dL (75-100) H 10/12/16 12:47 POC Glucose 228 (70-105) H 10/12/16 15:58 Hemoglobin A1c 11.5 % (4-6) H 10/11/16 11:34 Calcium 7.9 mg/dL (8.4-10.2) L 10/12/16 12:47 Total Bilirubin 1.90 mg/dL (0.1-1.2) H 10/12/16 12:47 AST 15 units/L (5-40) 10/12/16 12:47 ALT 12 units/L (7-56) 10/12/16 12:47 Alkaline Phosphatase 96 units/L (35-129) 10/12/16 12:47 NT-Pro-B Natriuret Pep 382.2 pg/mL (0-900) 10/10/16 21:06 Total Protein 6.1 g/dL (6.3-8.2) L 10/12/16 12:47 Albumin 2.8 g/dL (3.9-5) L 10/12/16 12:47 Albumin/Globulin Ratio 0.8 % 10/12/16 12:47 Triglycerides 77 mg/dL (2-149) 10/11/16 Unknown Cholesterol 155 mg/dL (50-199) 10/11/16 Unknown LDL Cholesterol Direct 87 mg/dL (50-130) 10/11/16 Unknown HDL Cholesterol 53 mg/dL (40-59) 10/11/16 Unknown Cholesterol/HDL Ratio 2.92 % 10/11/16 Unknown Urine Color Yellow (Yellow) 10/10/16 21:10 Urine Turbidity Clear (Clear) 10/10/16 21:10 Urine pH 5.0 (5.0-7.0) 10/10/16 21:10 Ur Specific [place] 1.031 (1.003-1.030) H 10/10/16 21:10 Urine Protein >500 mg/dL (Negative) 10/10/16 21:10 Urine Glucose (UA) >=500 mg/dL (Negative) 10/10/16 21:10 Urine Ketones Neg mg/dL (Negative) 10/10/16 21:10 Urine Blood Sm (Negative) 10/10/16 21:10 Urine Nitrite Neg (Negative) 10/10/16 21:10 Urine Bilirubin Neg (Negative) 10/10/16 21:10 Urine Urobilinogen 4.0 mg/dL (<2.0) 10/10/16 21:10 Ur Leukocyte Esterase Neg (Negative) 10/10/16 21:10 Urine WBC (Auto) 1.0 /HPF (0.0-6.0) 10/10/16 21:10 Urine RBC (Auto) 1.0 /HPF (0.0-6.0) 10/10/16 21:10 U Epithel Cells (Auto) < 1.0 /HPF (0-13.0) 10/10/16 21:10 Urine Creatinine 171.2 mg/dL (0.1-20.0) H 10/11/16 13:30 Urine Microalbumin 333.9 mg/dL (0.1-34.0) H 10/11/16 13:30 Microalb/Creat Ratio 1950.3 ug/mg 10/11/16 13:30
--- NOTE | 2016-10-13 10:30 | XRay Report ---
Single view chest: Compared to 10/10/16. History: Left PICC line placement. Findings: Borderline cardiomegaly. Trachea is midline. No consolidation, pneumothorax or pleural effusion. Tip of left PICC line in MID superior vena cava. Impression: No acute cardiopulmonary findings.
[2016-10-13] MEDS: ZESTRIL PO SCH (11:58)
[2016-10-13] MEDS: KEPPRA PO SCH ×2 (11:59→21:50)
[2016-10-13] MEDS: MACROBID PO SCH ×2 (11:59→21:50)
[2016-10-13] MEDS: LOPRESSOR PO SCH ×2 (11:59→21:49)
[2016-10-13] MEDS: PEPCID IV SCH (11:59)
[2016-10-13] MEDS: PLAVIX PO SCH (11:59)
[2016-10-13] MEDS: CLEOCIN PO SCH ×3 (12:03→21:50)
[2016-10-13] MEDS: GLUCOTROL PO SCH (12:04)
[2016-10-13] MEDS: APRESOLINE PO SCH ×3 (12:04→21:51)
[2016-10-13] MEDS ORDERED: NACL ONE ×2 (15:10→15:25)
--- NOTE | 2016-10-13 16:30 | Cat Scan Report ---
CTA chest: Chest pain, SOB. Following IV contrast administration transverse images were performed through the chest using PE protocol. Coronal and sagittal 2-D reformatted images as well as 3-D MIPP image included. Comparison is made to prior exam in December 2014. The pulmonary vessels are well opacified. There is a filling defect in the inferior right main pulmonary artery at the periphery of the vessel. The central portion is opacified. No obstruction to flow was identified in the peripheral vessels. No other filling defects are identified in the right or left pulmonary arterial circulation. On the patient's prior exam at 2014 large thrombi were present in this location as well as in other locations bilaterally. No filling defects are identified in the cardiac chambers. The thoracic aorta is normal in size and contour. Some scattered shoddy mediastinal adenopathy is present. Patent central airways. These findings are unchanged as well from prior study. There are no pulmonary nodules nor infiltrates and the pleural surfaces are unremarkable. No pleural effusions. Impressions: 1. The findings in the inferior right pulmonary artery are felt to represent a recannulization of the pulmonary flow through the previous thrombus. 2. No evidence of recurrent thrombus is identified. 3. No pulmonary pathology identified.
[2016-10-13] MEDS: HEPARIN/ 0.45% NACL-25,000 UNIT/500 ML 25,000 UNIT/500 ML BAG IV SCH (16:46)
[2016-10-13 19:30] LABS: Alanine Aminotransferase 10 units/L (7-56); Albumin 2.9 g/dL (3.9-5); Albumin/Globulin Ratio 0.9 %; Alkaline Phosphatase 98 units/L (35-129); Anion Gap 15 mmol/L; BUN/Creatinine Ratio 8.33; Blood Urea Nitrogen 5 mg/dL (9-20); Carbon Dioxide 26 mmol/L (22-30); Chloride 102.2 mmol/L (98-107); Glucose 138 mg/dL (75-100); Potassium 3.1 mmol/L (3.6-5.0); Sodium 140 mmol/L (137-145); Total Protein 6.1 g/dL (6.3-8.2)
[2016-10-13 19:51] LABS: Basophils % (Auto) 0.5 % (0.0-1.8); Eosinophils % (Auto) 2.7 % (0.0-4.3); Hematocrit 39.3 % (35.5-45.6); Hemoglobin 12.9 gm/dl (11.8-15.2); Mean Corpuscular HGB Conc 33 % (32-34); Mean Corpuscular Hemoglobin 30 pg (28-32); Mean Corpuscular Volume 90 fl (84-94); Platelet Count 168 K/mm3 (140-440); Red Blood Count 4.37 M/mm3 (3.65-5.03); Red Cell Distribution Width 14.7 % (13.2-15.2); White Blood Count 6.8 K/mm3 (4.5-11.0)
[2016-10-13 19:58] LABS: INR 1.08 (0.87-1.13)
[2016-10-13] MEDS: LEVEMIR SUB-Q SCH (23:30)
[2016-10-14] MEDS ORDERED: APRESOLINE IV ONE (06:10)
[2016-10-14] MEDS: NOVOLOG SUB-Q SCH (07:29)
[2016-10-14] MEDS: GLUCOTROL PO SCH (07:31)
[2016-10-14] MEDS ORDERED: ELIQUIS PO SCH (10:00)
--- NOTE | 2016-10-14 10:46 | Discharge Summary ---
Providers - Providers Date of Admission: 10/11/16 12:57 Date of discharge: 10/14/16 Attending physician: ARIADNA GLOVER 10/11/16 19:54 Consult to Wound/ET Nurse [CONS] Urgent Reason For Exam: wound eval 10/12/16 11:30 PICC Line Insertion [Consult to PICC Line RN] [CONS] Routine Reason For Exam: for cta of chest Type Line:: PICC 10/12/16 11:33 Speech Therapy Evaluation and Treat [CONS] Routine Reason For Exam: h/o dysphagia Primary care physician: EXPORT FREIGHT MANAGER Hospitalization Reason for admission: lower extremity swelling and pain Condition: Stable Pertinent studies: CT angiogram of the chest; inferior right pulmonary arteries are felt to present to the cannulization of pulmonary flow through previous thrombus, no recurrent thrombus noted Lower extremity venous Doppler; bilateral extensive DVT Chest x-ray; cardiomegaly and pulmonary venous hypertension no pulmonary edema Hospital course: 51-year-old -[place] male patient with multiple medical problems was admitted with the right lower extremity pain and venous Dopplers is consistent with right lower extremity acute DVT , admitted and managed with heparin drip initially and later changed to Eliquis CT angiogram of the chest negative for PE Today he is comfortable in bed no new complaints alert awake oriented 3 not in acute distress Vital signs are stable, hemodynamically and clinically stable for discharge on Eliquis Follow-up with primary care physician and 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 pickling 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 pickler per schedule Final diagnosis; Acute bilateral DVT History of COPD History of CVA with residual weakness Hypertension Type 2 diabetes mellitus Obesity Disposition: DC-30 STILL A PATIENT Time spent for discharge: 32 min Core Measure Documentation - Palliative Care Palliative Care/ Comfort Measures: Not Applicable - Core Measures Any of the following diagnoses?: DVT/PE - VTE Discharge Requirements Deep Vein Thrombosis/Pulmonary Embolism Present on Admission: Yes Has pt received <5 days of overlap therapy or INR<2.0: Yes (on Eliquis) Anticoagulant overlap therapy prescribed at discharge: No Contraindication No Overlap Therapy order at DC: Not Indicated (pt on eliquis) Exam - Constitutional Vitals: Temp Pulse Resp BP Pulse Ox 100.0 F H 82 20 155/86 97 10/14/16 08:00 10/14/16 08:00 10/14/16 08:00 10/14/16 08:00 10/14/16 08:00 General appearance: Present: no acute distress, well-nourished - EENT Eyes: Present: PERRL, EOM intact - Neck Neck: Present: supple, normal ROM - Respiratory Respiratory effort: normal Respiratory: negative: diminished, rales, rhonchi - Cardiovascular Rhythm: regular Heart Sounds: Present: S1 & S2 - Extremities Extremities: no ischemia, No edema Peripheral Pulses: within normal limits - Abdominal General gastrointestinal: Present: soft, non-tender, non-distended - Integumentary Integumentary: Present: clear, warm - Musculoskeletal Musculoskeletal: strength equal bilaterally - Psychiatric Psychiatric: appropriate mood/affect - Neurologic Neurologic: moves all extremities (CVA with residual weakness) Plan Activity: advance as tolerated, fall precautions Diet: advance as tolerated, other (soft diet) Special Instructions: physical therapy Additional Instructions: If you notice any bleeding, stop Eliquis and contact M.D. or go to emergency room Follow up with: PRIMARY CARE, [Primary Care Provider] - FREDY WARNER DO [Staff Physician] - 7 Days Prescriptions: Apixaban [Eliquis] 2 tab PO BID #28 tablet Apixaban [Eliquis] 5 mg PO BID #42 tablet hydrALAZINE [Apresoline TAB] 100 mg PO TID #90 tab
[2016-10-14] MEDS: ZESTRIL PO SCH (10:54)
[2016-10-14] MEDS: APRESOLINE PO SCH (10:55)
[2016-10-14] MEDS: PEPCID IV SCH (10:55)
[2016-10-14] MEDS: PLAVIX PO SCH (10:55)
[2016-10-14] MEDS: MACROBID PO SCH (10:56)
[2016-10-14] MEDS: LOPRESSOR PO SCH (10:56)
[2016-10-14] MEDS: CLEOCIN PO SCH (10:56)
[2016-10-14] MEDS: KEPPRA PO SCH (10:57)
--- NOTE | 2016-10-14 11:10 | Vascular Lab Report ---
LOWER EXTREMITY VENOUS DUPLEX: REASON FOR EXAM: Edema of the lower extremities. COMMENTS ON THE RIGHT: Deep venous thrombosis is noted in the posterior tibial, popliteal, femoral, common femoral, deep femoral and external iliac veins.. The remaining veins visualized are freely compressible without evidence of internal echogenicity. Spontaneous and phasic flow is absent proximally. COMMENTS ON THE LEFT: Deep venous thrombosis is noted of the popliteal, femoral, common femoral, deep femoral, external iliac veins.. The remaining veins visualized are freely compressible without evidence of internal echogenicity. Spontaneous and phasic flow is absent proximally. IMPRESSION: Bilateral extensive deep venous thrombosis.
[2016-10-14 16:31] VITALS: BP 157/85
[2016-10-15] MEDS ORDERED: PEPCID PO SCH (10:00)
== END 2016-10-14 21:01 | disposition home or self-care (01) | DRG 300 ==
LOC: ED 20:27 → 3A 10-11 12:57
PROVIDERS: ADMIT Family Medicine; ATTEND Internal Medicine
PROC: 02HV33Z Insertion of Infusion Device into Superior Vena Cava, Percutaneous Approach (ICD-10-PCS; principal; 2016-10-13)
DX: I82.432 Acute embolism and thrombosis of left popliteal vein (principal); I42.0 Dilated cardiomyopathy; I69.354 Hemiplegia and hemiparesis following cerebral infarction affecting left non-dominant side; J44.9 Chronic obstructive pulmonary disease, unspecified; E66.9 Obesity, unspecified; I11.0 Hypertensive heart disease with heart failure; I50.9 Heart failure, unspecified; E11.65 Type 2 diabetes mellitus with hyperglycemia; I16.0 Hypertensive urgency; I25.10 Atherosclerotic heart disease of native coronary artery without angina pectoris; E78.5 Hyperlipidemia, unspecified; F17.200 Nicotine dependence, unspecified, uncomplicated; R13.10 Dysphagia, unspecified; I82.412 Acute embolism and thrombosis of left femoral vein; I82.511 Chronic embolism and thrombosis of right femoral vein; G40.909 Epilepsy, unspecified, not intractable, without status epilepticus; Z68.34 Body mass index [BMI] 34.0-34.9, adult; Z86.711 Personal history of pulmonary embolism; Z79.4 Long term (current) use of insulin
CPT/HCPCS: 36415; 71010; 71275; 80048; 80053; 80061; 81001; 82043; 82805; 82962; 83036; 83516; 83880; 85014; 85018; 85025; 85049; 85301; 85305; 85307; 85520; 85610; 85613; 85730; 86147; 93005; 93010; 93970; 94640; 94760; 96372; 96374; 96375; A9270-GY; J0360; J1644; J1815; J1818; Q9967

== ENCOUNTER 2017-03-15 20:14 | Emergency (ER) | payer MEDICAID ==
--- NOTE | 2017-03-15 20:50 | Emergency Department Report ---
ED Fall HPI - General Chief Complaint: Fall Stated Complaint: FLL/LT SIDE PAIN Time Seen by Provider: 03/15/17 20:45 Source: patient, EMS Mode of arrival: Stretcher - History of Present Illness Initial Comments: Patient is a 51-year-old male who has a history of CVA with left hemiplegia who is presenting status post falling from bed. Patient denies hitting his head or loss of consciousness. Patient states he has pain at the left hip and thigh. Patient states that he also has some pain at the left elbow as well. Patient states that these pains are 6 out of 10 in severity. There is no radiation of pain. Patient denies any other symptoms such as chest pain shortness of breath nausea vomiting diarrhea or headache at this time. -: This afternoon Fall From: out of bed When Fall Occurred: [address] Fall Occurred: home Location - Extremities: Left: Elbow, Thigh, Leg Severity: moderate Severity scale (0 -10): 6 - Related Data Home Medications Medication Instructions Recorded Confirmed Last Taken Albuterol *Only Ed* [Proventil 1 puff INHALATION TID PRN 01/22/13 12/24/16 1 Day Ago 0.5% NEBS] ~12/09/16 Atorvastatin (Nf) [Lipitor] 10 mg PO QHS 01/22/13 12/24/16 1 Day Ago ~12/09/16 Furosemide [Lasix] 40 mg PO DAILY 01/22/13 12/24/16 1 Day Ago ~12/09/16 Insulin Glargine,Hum.rec.anlog 14 units SQ QHS PRN 01/22/13 12/24/16 1 Day Ago [Lantus Solostar] ~12/09/16 Lisinopril [Zestril TAB] 40 mg PO QDAY 01/22/13 12/24/16 1 Day Ago ~12/09/16 levETIRAcetam [Keppra XR TAB] 500 mg PO BID 01/22/13 12/24/16 1 Day Ago ~12/09/16 ALPRAZolam [Xanax TAB] 1 mg PO BID PRN 05/10/14 12/24/16 1 Day Ago ~12/09/16 Clopidogrel [Plavix] 75 mg PO QDAY 05/10/14 12/24/16 1 Day Ago ~12/09/16 glipiZIDE [Glucotrol] 10 mg PO QDAY 05/10/14 12/24/16 1 Day Ago ~12/09/16 Previous Rx's Medication Instructions Recorded Last Taken Type Metoprolol [Lopressor TAB] 75 mg PO BID #60 tablet 07/31/14 1 Day Ago Rx ~12/09/16 Dicyclomine [Bentyl] 10 mg PO QID PRN #20 capsule 01/18/15 1 Day Ago Rx ~12/09/16 hydrALAZINE [Apresoline TAB] 100 mg PO TID #90 tab 10/14/16 1 Day Ago Rx ~12/09/16 Enoxaparin [Lovenox] 120 mg SUB-Q Q12HR #28 syringe 12/13/16 Unknown Rx traMADol [Ultram] 50 mg PO Q6HR PRN #10 tablet 03/15/17 Unknown Rx Allergies Allergy/AdvReac Type Severity Reaction Status Date / Time No Known Allergies Allergy Unverified 01/22/13 16:47 ED Review of Systems ROS: Stated complaint: FLL/LT SIDE PAIN Other details as noted in HPI Comment: All other systems reviewed and negative ED Past Medical Hx - Past Medical History Previous Medical History?: Yes Hx Hypertension: Yes Hx CVA: Yes (nonambulatory, left-sided hemiplegia, slurred speech) Hx Congestive Heart Failure: Yes Hx Diabetes: Yes Hx Deep Vein Thrombosis: Yes (IVC FILTER) Hx Asthma: No Hx COPD: Yes (on home oxygen at 2L/M) Hx HIV: No - Surgical History Hx Pacemaker: No Hx Internal Defibrillator: No Additional Surgical History: IVC filter - Social History Smoking Status: Current Every Day Smoker Substance Use Type: None - Medications Home Medications: Home Medications Medication Instructions Recorded Confirmed Last Taken Type Albuterol *Only Ed* [Proventil 1 puff INHALATION TID PRN 01/22/13 12/24/16 1 Day Ago History 0.5% NEBS] ~12/09/16 Atorvastatin (Nf) [Lipitor] 10 mg PO QHS 01/22/13 12/24/16 1 Day Ago History ~12/09/16 Furosemide [Lasix] 40 mg PO DAILY 01/22/13 12/24/16 1 Day Ago History ~12/09/16 Insulin Glargine,Hum.rec.anlog 14 units SQ QHS PRN 01/22/13 12/24/16 1 Day Ago History [Lantus Solostar] ~12/09/16 Lisinopril [Zestril TAB] 40 mg PO QDAY 01/22/13 12/24/16 1 Day Ago History ~12/09/16 levETIRAcetam [Keppra XR TAB] 500 mg PO BID 01/22/13 12/24/16 1 Day Ago History ~12/09/16 ALPRAZolam [Xanax TAB] 1 mg PO BID PRN 05/10/14 12/24/16 1 Day Ago History ~12/09/16 Clopidogrel [Plavix] 75 mg PO QDAY 05/10/14 12/24/16 1 Day Ago History ~12/09/16 glipiZIDE [Glucotrol] 10 mg PO QDAY 05/10/14 12/24/16 1 Day Ago History ~12/09/16 Metoprolol [Lopressor TAB] 75 mg PO BID #60 tablet 07/31/14 12/24/16 1 Day Ago Rx ~12/09/16 Dicyclomine [Bentyl] 10 mg PO QID PRN #20 capsule 01/18/15 12/24/16 1 Day Ago Rx ~12/09/16 hydrALAZINE [Apresoline TAB] 100 mg PO TID #90 tab 10/14/16 12/24/16 1 Day Ago Rx ~12/09/16 Enoxaparin [Lovenox] 120 mg SUB-Q Q12HR #28 syringe 12/13/16 12/24/16 Unknown Rx traMADol [Ultram] 50 mg PO Q6HR PRN #10 tablet 03/15/17 Unknown Rx ED Physical Exam - General Limitations: Physical Limitation General appearance: alert, in no apparent distress - Head Head exam: Present: atraumatic, normocephalic - Eye Eye exam: Present: normal appearance - ENT ENT exam: Present: mucous membranes moist - Neck Neck exam: Present: normal inspection - Respiratory Respiratory exam: Present: normal lung sounds bilaterally. Absent: respiratory distress, wheezes, rales, rhonchi - Cardiovascular Cardiovascular Exam: Present: regular rate, normal rhythm. Absent: systolic murmur, diastolic murmur, rubs, gallop - GI/Abdominal GI/Abdominal exam: Present: soft, normal bowel sounds - Rectal Rectal exam: Present: deferred - Extremities Exam Extremities exam: Present: normal inspection - Back Exam Back exam: Present: normal inspection, tenderness, other (patient has tenderness to the left hip and left thigh as well as the left elbow patient has full range of motion actively) - Neurological Exam Neurological exam: Present: alert, oriented X3 - Psychiatric Psychiatric exam: Present: normal affect, normal mood - Skin Skin exam: Present: warm, dry, intact, normal color. Absent: rash ED Course Vital Signs 03/15/17 03/15/17 03/15/17 20:32 20:36 20:47 Temperature 98.4 F Pulse Rate 83 Respiratory 18 18 Rate Blood Pressure 146/91 146/91 O2 Sat by Pulse 93 95 95 Oximetry ED Medical Decision Making - Radiology Data Radiology results: report reviewed X-ray of the left hip left knee and left elbow show no acute fracture Critical care attestation.: If time is entered above; I have spent that time in minutes in the direct care of this critically ill patient, excluding procedure time. ED Disposition Clinical Impression: Musculoskeletal pain Fall Qualifiers: Encounter type: initial encounter Qualified Code(s): W19.XXXA - Unspecified fall, initial encounter Disposition: DC-01 TO HOME OR SELFCARE Is pt being admited?: No Does the pt Need Aspirin: No Condition: Stable Instructions: Musculoskeletal Pain (ED) Prescriptions: traMADol [Ultram] 50 mg PO Q6HR PRN #10 tablet PRN Reason: Pain Referrals: PRIMARY CARE, [Primary Care Provider] - 3-5 Days
[2017-03-15] MEDS ORDERED: NORCO 5/325 PO ONE (21:02)
--- NOTE | 2017-03-15 22:43 | XRay Report ---
FINAL REPORT EXAM: XR HIP 2-3V LT HISTORY: fall COMPARISON: None available. FINDINGS: AP view of the pelvis and frogleg view of the left hip obtained. Pelvic ring is intact. Bilateral hip joint spaces are preserved. Mild osteophyte along the femoral necks and acetabular rims. SI joints are preserved. Bowel gas partially obscures the sacrum. No acute fracture dislocation. IMPRESSION: No acute bony abnormality. Mild degenerative changes.
--- NOTE | 2017-03-15 22:46 | XRay Report ---
FINAL REPORT EXAM: XR KNEE 1-2V LT HISTORY: fall COMPARISON: None available. FINDINGS: Two views of the left knee obtained. Mild narrowing of the medial joint space compartment with marginal osteophyte. Mild patellar osteophyte. No acute fracture dislocation. IMPRESSION: No acute bony abnormality. Mild degenerative changes.
--- NOTE | 2017-03-15 22:47 | XRay Report ---
FINAL REPORT EXAM: XR ELBOW 2V LT HISTORY: fall COMPARISON: None available. FINDINGS: Two views of the left elbow obtained. Small likely non enthesophyte. No acute fracture dislocation. No joint effusion. IMPRESSION: No acute fracture.
[2017-03-16 07:30] VITALS: BP 145/94
== END 2017-03-16 07:56 | disposition home or self-care (01) ==
LOC: ED 20:14
DX: M25.552 Pain in left hip (principal); M79.652 Pain in left thigh; M25.522 Pain in left elbow; I10 Essential (primary) hypertension; Z86.73 Personal history of transient ischemic attack (TIA), and cerebral infarction without residual deficits; I50.9 Heart failure, unspecified; E11.9 Type 2 diabetes mellitus without complications; J44.9 Chronic obstructive pulmonary disease, unspecified; F17.200 Nicotine dependence, unspecified, uncomplicated; W06.XXXA Fall from bed, initial encounter; Y93.89 Activity, other specified; Y92.89 Other specified places as the place of occurrence of the external cause; Y99.8 Other external cause status
CPT/HCPCS: 99283

== ENCOUNTER 2017-09-30 13:45 | Emergency (ER) | payer MEDICAID ==
--- NOTE | 2017-09-30 15:14 | Cat Scan Report ---
CT HEAD WITHOUT CONTRAST: HISTORY: Headache. TECHNIQUE: Sequential CT images without contrast. FINDINGS: Images obtained show bilateral prominence of the sulci and ventricles. There are no abnormal intra- or extra-axial blood or fluid collections. There are no focal masses or evidence of mass effect. The arreola white matter differentiation appears within normal limits. Regions of periventricular decreased attenuation are consistent with microangiopathic ischemic disease. Chronic infarcts are identified in the left posterior frontal lobe and left cerebellum. The posterior fossa structures including the fourth ventricle, cerebellum, and brainstem appear normal. IMPRESSION: Evidence of atrophy and microangiopathic ischemic disease. Chronic infarcts in the left frontal lobe and left cerebellum. No acute intracranial process noted.
--- NOTE | 2017-09-30 16:01 | Emergency Department Report ---
ED Fall HPI - General Chief Complaint: Fall Stated Complaint: FELL DOWN Time Seen by Provider: 09/30/17 15:53 Source: patient Mode of arrival: Wheelchair - History of Present Illness Initial Comments: Patient is 52 years old male with history of hypertension, diabetes, congestive heart failure and multiple CVA. Patient brought to the ER for evaluation after a fall from his wheelchair happened just prior to coming to the ER. Patient denied any loss of consciousness but he was complaining of mild headache. Patient presented with multiple abrasions one to the left forehead and bilateral knee and left hand. Patient denied any symptoms prior to the fall. MD Complaint: fall Fall From: wheelchair Fall Witnessed: yes, by family Place Fall Occurred: home Loss of Consciousness: none Prolonged Down Time?: no Symptoms Prior to Fall: none Location: head Location - Extremities: Left: Hand, Knee, Right: Knee Severity: mild Quality: sharp Associated Symptoms: headache - Related Data Home Medications Medication Instructions Recorded Confirmed Last Taken Furosemide [Lasix] 40 mg PO DAILY 01/22/13 09/30/17 1 Day Ago ~12/09/16 Lisinopril [Zestril TAB] 40 mg PO DAILY 01/22/13 09/30/17 1 Day Ago ~12/09/16 levETIRAcetam [Keppra XR TAB] 500 mg PO BID 01/22/13 09/30/17 1 Day Ago ~12/09/16 glipiZIDE [Glucotrol] 10 mg PO DAILY 05/10/14 09/30/17 1 Day Ago ~12/09/16 Amlodipine Besylate [Norvasc] 10 mg PO DAILY 09/30/17 09/30/17 Unknown Doxazosin [Cardura] 4 mg PO BID 09/30/17 09/30/17 Unknown Insulin Glargine,Hum.rec.anlog 40 units SQ QHS 09/30/17 09/30/17 Unknown [Lantus] Sitagliptin Phosphate [Januvia] 100 mg PO DAILY 09/30/17 09/30/17 Unknown Allergies Allergy/AdvReac Type Severity Reaction Status Date / Time No Known Allergies Allergy Unverified 01/22/13 16:47 ED Review of Systems ROS: Stated complaint: FELL DOWN Other details as noted in HPI Comment: All other systems reviewed and negative Constitutional: denies: chills, fever ENT: denies: ear pain Respiratory: denies: cough Cardiovascular: denies: chest pain, palpitations Gastrointestinal: denies: abdominal pain, nausea, vomiting Musculoskeletal: denies: back pain Neurological: denies: headache, weakness, numbness, paresthesias, confusion ED Past Medical Hx - Past Medical History Previous Medical History?: Yes Hx Hypertension: Yes Hx CVA: Yes (nonambulatory, left-sided hemiplegia, slurred speech) Hx Congestive Heart Failure: Yes Hx Diabetes: Yes Hx Deep Vein Thrombosis: Yes (IVC FILTER) Hx Asthma: No Hx COPD: Yes (on home oxygen at 2L/M) Hx HIV: No - Surgical History Past Surgical History?: Yes Hx Pacemaker: No Hx Internal Defibrillator: No Additional Surgical History: IVC filter - Social History Smoking Status: Never Smoker Substance Use Type: None - Medications Home Medications: Home Medications Medication Instructions Recorded Confirmed Last Taken Type Furosemide [Lasix] 40 mg PO DAILY 01/22/13 09/30/17 1 Day Ago History ~12/09/16 Lisinopril [Zestril TAB] 40 mg PO DAILY 01/22/13 09/30/17 1 Day Ago History ~12/09/16 levETIRAcetam [Keppra XR TAB] 500 mg PO BID 01/22/13 09/30/17 1 Day Ago History ~12/09/16 glipiZIDE [Glucotrol] 10 mg PO DAILY 05/10/14 09/30/17 1 Day Ago History ~12/09/16 Amlodipine Besylate [Norvasc] 10 mg PO DAILY 09/30/17 09/30/17 Unknown History Doxazosin [Cardura] 4 mg PO BID 09/30/17 09/30/17 Unknown History Insulin Glargine,Hum.rec.anlog 40 units SQ QHS 09/30/17 09/30/17 Unknown History [Lantus] Sitagliptin Phosphate [Januvia] 100 mg PO DAILY 09/30/17 09/30/17 Unknown History ED Physical Exam - General Limitations: Physical Limitation General appearance: alert, in no apparent distress - Head Head exam: Present: other (abrasion to the left forehead) - Eye Eye exam: Present: normal appearance, PERRL - ENT ENT exam: Present: normal exam, normal orophraynx, mucous membranes moist - Neck Neck exam: Present: normal inspection, full ROM. Absent: tenderness, meningismus, lymphadenopathy, thyromegaly - Respiratory Respiratory exam: Present: normal lung sounds bilaterally. Absent: respiratory distress, wheezes, rales, rhonchi, stridor, chest wall tenderness, accessory muscle use, decreased breath sounds, prolonged expiratory - Cardiovascular Cardiovascular Exam: Present: regular rate, normal rhythm, normal heart sounds - GI/Abdominal GI/Abdominal exam: Present: soft, normal bowel sounds. Absent: distended, tenderness, guarding, rebound, rigid, organomegaly, mass, bruit, pulsatile mass , hernia - Extremities Exam Extremities exam: Present: other (bilateral knee pain and abrasion) - Back Exam Back exam: Present: normal inspection, full ROM. Absent: tenderness, CVA tenderness (R), CVA tenderness (L), muscle spasm, paraspinal tenderness, vertebral tenderness - Neurological Exam Neurological exam: Present: alert, oriented X3, CN II-XII intact - Skin Skin exam: Present: warm, dry, normal color ED Course Vital Signs 09/30/17 09/30/17 09/30/17 14:05 15:16 15:18 Temperature 98.5 F Pulse Rate 81 Respiratory 18 18 Rate Blood Pressure 129/90 132/81 O2 Sat by Pulse 95 94 94 Oximetry 09/30/17 09/30/17 09/30/17 15:24 16:00 17:00 Temperature 97.9 F Pulse Rate 85 Respiratory Rate Blood Pressure 137/81 137/81 O2 Sat by Pulse 94 90 Oximetry 09/30/17 18:00 Temperature Pulse Rate Respiratory Rate Blood Pressure 148/85 O2 Sat by Pulse Oximetry ED Medical Decision Making - Radiology Data Radiology results: report reviewed Bilateral knee x-ray and left hand x-ray is unremarkable for acute findings. Critical care attestation.: If time is entered above; I have spent that time in minutes in the direct care of this critically ill patient, excluding procedure time. ED Disposition Clinical Impression: Fall, Head injury, Knee contusion Disposition: TO HOME OR SELFCARE Is pt being admited?: No Condition: Stable Instructions: Fall Prevention for Older Adults (ED), Contusion in Adults (ED) Referrals: PRIMARY CARE, [Primary Care Provider] - 3-5 Days
[2017-09-30] MEDS ORDERED: TRIPLE ANTIBIOTIC TP ONE (16:03)
[2017-09-30 18:13] VITALS: BP 148/85
--- NOTE | 2017-09-30 18:35 | XRay Report ---
FINAL REPORT EXAM: XR KNEE BILAT 1-2V HISTORY: bilateral knee injury, status post fall from a whe TECHNIQUE: Frontal and lateral views of right and left knees. PRIORS: Left knee radiographs, 15 March 2017. FINDINGS: Mild degenerative changes in the medial and patellofemoral joint spaces bilaterally, right greater than left. Polygonal and well-corticated, ossific density adjacent to the right tibial tubercle may represent sequelae of osteochondrosis versus unfused or accessory ossicle. No acute fracture or dislocation. Soft tissues grossly unremarkable. IMPRESSION: 1. No acute osseous abnormality. 2. Degenerative changes.
--- NOTE | 2017-09-30 18:36 | XRay Report ---
FINAL REPORT EXAM: XR HAND 3+V LT HISTORY: left hand injury TECHNIQUE: 3 views of left hand. PRIORS: None. FINDINGS: Generalized osteopenia and mild degenerative change scattered in the wrist and IP joints. No apparent fracture or dislocation. Soft tissues grossly unremarkable. IMPRESSION: 1. No acute osseous abnormality. 2. Degenerative changes.
== END 2017-09-30 19:49 | disposition home or self-care (01) ==
LOC: ED 13:45
DX: S80.02XA Contusion of left knee, initial encounter (principal); S80.01XA Contusion of right knee, initial encounter; S00.81XA Abrasion of other part of head, initial encounter; I11.0 Hypertensive heart disease with heart failure; I50.9 Heart failure, unspecified; E11.9 Type 2 diabetes mellitus without complications; J44.9 Chronic obstructive pulmonary disease, unspecified; Z86.73 Personal history of transient ischemic attack (TIA), and cerebral infarction without residual deficits; Z79.4 Long term (current) use of insulin; W05.0XXA Fall from non-moving wheelchair, initial encounter; Y93.89 Activity, other specified; Y92.009 Unspecified place in unspecified non-institutional (private) residence as the place of occurrence of the external cause; Y99.8 Other external cause status
CPT/HCPCS: 70450; 99284; A6250

== ENCOUNTER 2017-12-09 06:38 | Emergency (ER) | payer MEDICAID ==
[2017-12-09] MEDS ORDERED: NACL 0.9% 1000 ML 1,000 ML IV ONE (06:45)
[2017-12-09] MEDS ORDERED: ZOFRAN IV ONE ×2 (07:01→07:28)
[2017-12-09] MEDS ORDERED: MORPHINE IV ONE (07:28)
[2017-12-09 07:30] LABS: Basophils # (Auto) 0.1 K/mm3 (0.0-0.1); Basophils % (Auto) 0.8 % (0.0-1.8); Eosinophils # (Auto) 0.1 K/mm3 (0.0-0.4); Eosinophils % (Auto) 2.3 % (0.0-4.3); Hemoglobin 13.1 gm/dl (11.8-15.2); Lymphocytes # (Auto) 0.7 K/mm3 (1.2-5.4); Lymphocytes % (Auto) 11.1 % (13.4-35.0); Mean Corpuscular HGB Conc 32 % (32-34); Mean Corpuscular Hemoglobin 27 pg (28-32); Mean Corpuscular Volume 85 fl (84-94); Monocytes # (Auto) 0.5 K/mm3 (0.0-0.8); Monocytes % (Auto) 7.9 % (0.0-7.3); Platelet Count 290 K/mm3 (140-440); Red Blood Count 4.84 M/mm3 (3.65-5.03); Red Cell Distribution Width 19.7 % (13.2-15.2)
--- NOTE | 2017-12-09 07:32 | XRay Report ---
FINAL REPORT PROCEDURE: XR CHEST 1V AP TECHNIQUE: Chest radiograph anteroposterior view. CPT 15332 HISTORY: hypertension COMPARISON: 08/30/2017 FINDINGS: Heart: Heart is enlarged. Mediastinum/Vessels: Normal. Lungs/Pleural space: Lungs are expanded. There are no infiltrates, effusions or pneumothoraces. Bony thorax: No acute osseous abnormality. Life support devices: None. IMPRESSION: Heart is enlarged. There is no acute lung disease..
--- NOTE | 2017-12-09 07:33 | Emergency Department Report ---
ED Abdominal Pain HPI - General Chief Complaint: Abdominal Pain Stated Complaint: EMESIS/ABD PAIN Time Seen by Provider: 12/09/17 06:59 Source: EMS Mode of arrival: Stretcher Limitations: Physical Limitation, Other - History of Present Illness Initial Comments: This is a 52-year-old male with multiple comorbidities to include recurrent abdominal pain, insulin-dependent diabetes, previous right hemispheric stroke with expressive aphasia. He was last admitted to this hospital with the following discharge summary: 52M with cp, LLE swelling, the patient had not been compliant with anticoagulants. He had been prescribed eliquis last year he had been prescribed warfarin earlier this year. Patient has not been taking it. Stated that he did not know what medications he was taking that his cough and with administering all of them 10. Imaging showed acute PE and DVT in her left lower extremity. The patient and his girlfriend were educated on the need for lifelong anticoagulation. He was put back on anticoagulation and subsequently discharged. He has a history of pulmonary embolism and DVT as well as noncompliance. Patient today complains of a mid epigastric pain which does not apparently radiate. He states began yesterday. It is persistent. As far as I can tell he has not been vomiting. He has not witnessed any apparent GI bleeding. He has no prior history of abdominal surgery. He is not reporting fever or chills. His ability to give a history is limited secondary to his dysarthria. However he seems to be understanding my questions reasonably well. At this time the pain is mild to moderate in intensity and the patient looks comfortable. A CT of the abdomen and pelvis on 08/30/2017 showed no acute intra-abdominal or pelvic process. A CTA on 08/31/2017 was positive for pulmonary embolism. Patient states he has no history of heart problems. However his records from 2010 show non-STEMI. He had an EF of 55-60% on echo done on 12/24/2016. Complaint: abdominal pain -: Gradual, hour(s) Location: epigastric Radiation: none Migration to: no migration Severity: moderate Severity scale (0 -10): 0 Quality: aching Consistency: intermittent Improves With: nothing Worsens With: nothing Context: other (diabetes) Associated Symptoms: denies other symptoms - Related Data Home Medications Medication Instructions Recorded Confirmed Last Taken Furosemide [Lasix] 40 mg PO DAILY 01/22/13 09/30/17 1 Day Ago ~12/09/16 Lisinopril [Zestril TAB] 40 mg PO DAILY 01/22/13 09/30/17 1 Day Ago ~12/09/16 levETIRAcetam [Keppra XR TAB] 500 mg PO BID 01/22/13 09/30/17 1 Day Ago ~12/09/16 glipiZIDE [Glucotrol] 10 mg PO DAILY 05/10/14 09/30/17 1 Day Ago ~12/09/16 Amlodipine Besylate [Norvasc] 10 mg PO DAILY 09/30/17 09/30/17 Unknown Doxazosin [Cardura] 4 mg PO BID 09/30/17 09/30/17 Unknown Insulin Glargine,Hum.rec.anlog 40 units SQ QHS 09/30/17 09/30/17 Unknown [Lantus] Sitagliptin Phosphate [Januvia] 100 mg PO DAILY 09/30/17 09/30/17 Unknown Previous Rx's Medication Instructions Recorded Last Taken Type Ondansetron [Zofran Odt] 4 mg PO Q8HR PRN #14 tab.rapdis 09/30/17 Unknown Rx traMADol [Ultram 50 MG tab] 50 mg PO Q4HR PRN #14 tablet 09/30/17 Unknown Rx Allergies Allergy/AdvReac Type Severity Reaction Status Date / Time No Known Allergies Allergy Verified 12/09/17 06:45 ED Review of Systems ROS: Stated complaint: EMESIS/ABD PAIN Other details as noted in HPI Constitutional: denies: chills, fever Eyes: denies: eye pain, eye discharge, vision change ENT: denies: ear pain, throat pain Respiratory: denies: cough, shortness of breath, wheezing Cardiovascular: denies: chest pain, palpitations Endocrine: no symptoms reported Gastrointestinal: abdominal pain. denies: nausea, vomiting, diarrhea Genitourinary: denies: urgency, dysuria Musculoskeletal: denies: back pain, joint swelling, arthralgia Skin: denies: rash, lesions Neurological: denies: headache, weakness, paresthesias Psychiatric: denies: anxiety, depression Hematological/Lymphatic: denies: easy bleeding, easy bruising ED Past Medical Hx - Past Medical History Hx Hypertension: Yes Hx CVA: Yes (nonambulatory, left-sided hemiplegia, slurred speech) Hx Congestive Heart Failure: Yes Hx Diabetes: Yes Hx Deep Vein Thrombosis: Yes (IVC FILTER) Hx Asthma: No Hx COPD: Yes (on home oxygen at 2L/M) Hx HIV: No - Surgical History Hx Pacemaker: No Hx Internal Defibrillator: No Additional Surgical History: IVC filter - Social History Smoking Status: Never Smoker Substance Use Type: None - Medications Home Medications: Home Medications Medication Instructions Recorded Confirmed Last Taken Type Furosemide [Lasix] 40 mg PO DAILY 01/22/13 09/30/17 1 Day Ago History ~12/09/16 Lisinopril [Zestril TAB] 40 mg PO DAILY 01/22/13 09/30/17 1 Day Ago History ~12/09/16 levETIRAcetam [Keppra XR TAB] 500 mg PO BID 01/22/13 09/30/17 1 Day Ago History ~12/09/16 glipiZIDE [Glucotrol] 10 mg PO DAILY 05/10/14 09/30/17 1 Day Ago History ~12/09/16 Amlodipine Besylate [Norvasc] 10 mg PO DAILY 09/30/17 09/30/17 Unknown History Doxazosin [Cardura] 4 mg PO BID 09/30/17 09/30/17 Unknown History Insulin Glargine,Hum.rec.anlog 40 units SQ QHS 09/30/17 09/30/17 Unknown History [Lantus] Ondansetron [Zofran Odt] 4 mg PO Q8HR PRN #14 tab.rapdis 09/30/17 Unknown Rx Sitagliptin Phosphate [Januvia] 100 mg PO DAILY 09/30/17 09/30/17 Unknown History traMADol [Ultram 50 MG tab] 50 mg PO Q4HR PRN #14 tablet 09/30/17 Unknown Rx ED Physical Exam - General Limitations: Physical Limitation, Other General appearance: alert, in no apparent distress, obese - Head Head exam: Present: atraumatic, normocephalic - Eye Eye exam: Present: normal appearance - ENT ENT exam: Present: mucous membranes moist - Neck Neck exam: Present: normal inspection. Absent: tenderness, meningismus - Respiratory Respiratory exam: Present: normal lung sounds bilaterally. Absent: respiratory distress - Cardiovascular Cardiovascular Exam: Present: regular rate, normal rhythm. Absent: systolic murmur, diastolic murmur, rubs, gallop - GI/Abdominal GI/Abdominal exam: Present: soft, normal bowel sounds. Absent: distended, tenderness, guarding, rebound, rigid, organomegaly, mass, bruit, pulsatile mass , hernia (no apparent abnormalities on abdominal examination at this time other than obesity) - Rectal Rectal exam: Present: deferred - Extremities Exam Extremities exam: Present: normal inspection - Back Exam Back exam: Present: normal inspection - Neurological Exam Neurological exam: Present: alert, oriented X3, motor sensory deficit. Absent: CN II-XII intact (facial paresis, pre-existing left-sided hemiparesis) - Psychiatric Psychiatric exam: Present: normal affect, normal mood - Skin Skin exam: Present: warm, dry, intact, normal color. Absent: rash ED Course Vital Signs 12/09/17 12/09/17 12/09/17 06:50 07:38 07:39 Temperature 98.5 F 98.0 F Pulse Rate 75 75 Respiratory 16 12 12 Rate Blood Pressure 157/99 133/85 [Left] Blood Pressure [Right] O2 Sat by Pulse 97 93 94 Oximetry 12/09/17 09:00 Temperature Pulse Rate 79 Respiratory 12 Rate Blood Pressure [Left] Blood Pressure 142/85 [Right] O2 Sat by Pulse 96 Oximetry - Reevaluation(s) Reevaluation #1: Patient was noted to have a substantially different EKG appeared to previous consistent with ischemia. He was given 20 of Lasix for mild volume overload. A CT of his chest shows chronic pulmonary embolism. His compliance status on his anticoagulant is unknown and he has been chronically noncompliant in the past. Because of his epigastric pain may be cardiac or perhaps biliary he does have an elevated bilirubin. I will order a gallbladder ultrasound. There were enough indications for admission to call the hospitalist for further care and inpatient evaluation. He will be admitted to Dr. Lombardo's service. 12/09/17 10:30 ED Medical Decision Making - Lab Data Result diagrams: 12/09/17 06:56 12/09/17 06:56 Laboratory Results - last 24 hr 12/09/17 12/09/17 12/09/17 06:56 06:56 07:02 WBC 6.6 RBC 4.84 Hgb 13.1 Hct 41.0 MCV 85 MCH 27 L MCHC 32 RDW 19.7 H Plt Count 290 Lymph % (Auto) 11.1 L [place] % (Auto) 7.9 H Eos % (Auto) 2.3 Baso % (Auto) 0.8 Lymph # 0.7 L [place] # 0.5 Eos # 0.1 Baso # 0.1 Seg Neutrophils % 77.9 H Seg Neutrophils # 5.1 PT 14.6 INR 1.08 APTT 31.3 D-Dimer 922.08 H Sodium 140 Potassium 3.9 Chloride 101.7 Carbon Dioxide 25 Anion Gap 17 BUN 6 L Creatinine 0.8 Estimated GFR > 60 BUN/Creatinine Ratio 8 Glucose 156 H Lactic Acid Calcium 9.1 Magnesium Total Bilirubin 2.10 H AST 13 ALT 11 Alkaline Phosphatase 155 H CK-MB (CK-2) Troponin T NT-Pro-B Natriuret Pep Total Protein 7.9 Albumin 3.4 L Albumin/Globulin Ratio 0.8 Lipase 12/09/17 12/09/17 12/09/17 07:02 07:02 07:05 WBC RBC Hgb Hct MCV MCH MCHC RDW Plt Count Lymph % (Auto) [place] % (Auto) Eos % (Auto) Baso % (Auto) Lymph # [place] # Eos # Baso # Seg Neutrophils % Seg Neutrophils # PT INR APTT D-Dimer Sodium Potassium Chloride Carbon Dioxide Anion Gap BUN Creatinine Estimated GFR BUN/Creatinine Ratio Glucose Lactic Acid 1.40 Calcium Magnesium 1.80 Total Bilirubin AST ALT Alkaline Phosphatase CK-MB (CK-2) 2.4 Troponin T < 0.010 NT-Pro-B Natriuret Pep 1449 H Total Protein Albumin Albumin/Globulin Ratio Lipase 6 L - EKG Data EKG shows normal: sinus rhythm, axis, intervals, QRS complexes Rate: normal - EKG Data When compared to previous EKG there are: changes noted Interpretation: other (patient has anterior and inferolateral T-wave inversions leads appear worse than prior although prior was also abnormal ischemia is to be considered) - Radiology Data IMPRESSION: Nonocclusive filling defect in the right lower lobe arteries as described which appears to represent a chronic pulmonary embolus which has decreased in volume by approximately 90% since the previous exam. No new embolus is appreciated. Mild volume overload/CHF is suspected. IMPRESSION: No acute process. Trace pelvic ascites. Critical care attestation.: If time is entered above; I have spent that time in minutes in the direct care of this critically ill patient, excluding procedure time. ED Disposition Clinical Impression: Epigastric pain, Elevated bilirubin, Abnormal EKG, Elevated d-dimer, Congestive cardiomyopathy Chronic pulmonary embolism Qualifiers: Pulmonary embolism type: other Acute cor pulmonale presence: without acute cor pulmonale Qualified Code(s): I27.82 - Chronic pulmonary embolism CHF (congestive heart failure) Qualifiers: Heart failure type: diastolic Heart failure chronicity: acute on chronic Qualified Code(s): I50.33 - Acute on chronic diastolic (congestive) heart failure Disposition: OP ADMIT IP TO THIS HOSP Is pt being admited?: Yes Does the pt Need Aspirin: Yes Condition: Stable Referrals: PRIMARY CARE, [Primary Care Provider] - 3-5 Days Time of Disposition: 10:34
[2017-12-09 07:37] LABS: INR 1.08 (0.87-1.13)
[2017-12-09 07:38] LABS: Partial Thromboplastin Time 31.3 Sec. (24.2-36.6)
[2017-12-09 08:21] LABS: Creatine Kinase MB 2.4 ng/mL (0.0-4.0)
[2017-12-09 08:22] LABS: Alanine Aminotransferase 11 units/L (7-56); Albumin 3.4 g/dL (3.9-5); BUN/Creatinine Ratio 8; Blood Urea Nitrogen 6 mg/dL (9-20); Calcium 9.1 mg/dL (8.4-10.2); Hemolysis Index 6
--- NOTE | 2017-12-09 09:34 | Cat Scan Report ---
CTA CHEST: HISTORY: Elevated d-dimer, history of noncompliance, pulmonary embolus. COMPARISON: 09/01/17. TECHNIQUE: Helical CT in 1.25mm intervals following IV contrast. Pulmonary embolus protocol. Sagittal and coronal reformatted images. Rotational MIP images. FINDINGS: Contrast bolus is satisfactory. Nonocclusive pulmonary arterial filling defect is identified in the second and third order branches leading to the right lower lobe. On the previous exam, a large embolus was identified in this area which has decreased in volume by approximately 90%. This apparently represents a chronic pulmonary embolus. No new pulmonary arterial filling defect is identified. Thyroid gland: Normal. Tracheobronchial tree: Normal. Esophagus: Normal. Heart: Borderline heart size. Pericardium: Small to medium pericardial effusion. Mediastinum: Normal. Lung Jones: Mild central congestion. No infiltrate or mass. Pleural Spaces: Small bilateral layering pleural effusions. Musculoskeletal: Intact. IMPRESSION: Nonocclusive filling defect in the right lower lobe arteries as described which appears to represent a chronic pulmonary embolus which has decreased in volume by approximately 90% since the previous exam. No new embolus is appreciated. Mild volume overload/CHF is suspected.
--- NOTE | 2017-12-09 09:36 | Cat Scan Report ---
CT ABDOMEN PELVIS WITH CONTRAST: HISTORY: Epigastric pain. COMPARISON: none. TECHNIQUE: Helical CT in 1.25mm intervals following IV contrast. Sagittal and coronal reconstructions. FINDINGS: Liver: Normal. Biliary system: Normal. Pancreas: Normal. Spleen: Normal. Kidneys/ureters/bladder: Within normal limits. The bladder is decompressed with a Chin catheter. Adrenal glands: Normal. Aorta: Normal. An IVC filter is in place below the renal veins. Intestines: Within normal limits given no oral contrast was administered. Appendix: Normal. Ascites: Trace pelvic ascites. Adenopathy: None. Musculoskeletal: Mild thoracolumbar spondylosis. IMPRESSION: No acute process. Trace pelvic ascites.
[2017-12-09 10:16] VITALS: BP 142/85
[2017-12-09] MEDS ORDERED: LASIX IV ONE ×2 (10:28→10:43)
[2017-12-09 10:33] LABS: Bilirubin,Urine NEG (Negative); Blood,Urine SM (Negative); Calcium Oxalate Crystals,Urine FEW; Color,Urine Amber (Yellow); Mucus,Urine FEW /HPF
[2017-12-09] MEDS ORDERED: BABY ASPIRIN PO ONE (10:35)
[2017-12-09 10:38] LABS: Protein,Urine >500 mg/dL (Negative)
[2017-12-09] MEDS ORDERED: ZOFRAN IV PRN (11:02)
[2017-12-09] MEDS ORDERED: TYLENOL PO PRN (11:02)
[2017-12-09] MEDS ORDERED: SODIUM CHLORIDE FLUSH SYRINGE 10 ML IV PRN (11:02)
[2017-12-09] MEDS ORDERED: MORPHINE IV PRN (11:02)
[2017-12-09] MEDS ORDERED: ULTRAM PO PRN (11:03)
[2017-12-09] MEDS ORDERED: COUMADIN PO ONE (11:15)
--- NOTE | 2017-12-09 11:26 | Ultrasound Report ---
ULTRASOUND ABDOMEN LIMITED: TECHNIQUE: Transabdominal ultrasound with color Doppler interrogation. HISTORY: right upper quadrant abdominal pain. COMPARISON: CT abdomen pelvis with contrast performed the same day. FINDINGS: LIVER: Normal. BILIARY SYSTEM: The gallbladder is contracted. No evidence for gallstones. The CBD measures 3 mm. PANCREAS: Obscured by bowel gas. RIGHT KIDNEY: Normal. PROXIMAL AORTA: Normal. ASCITES: None. IMPRESSION: Unremarkable exam.
--- NOTE | 2017-12-09 11:45 | Short Stay Summary ---
Short Stay Documentation Date of service: 12/09/17 Narrative H&P: Patient is a 52-year-old male with multiple comorbidities to include recurrent abdominal pain, insulin-dependent diabetes, previous right hemispheric stroke with expressive aphasia. Who presented to the hospital with nausea and vomiting and abdominal pain. The patient recommended for admission for diuresis due to normal saline given in the ED and pulse oximetry showing desaturation. During admission the patients hospice nurse arrived and patient and family requested he transfer to the hospice inpatient. ED requested we complete the process since patient has been admitted. He continued to exhibt shortness of breath but no chest pain. Assessment 1. Congestive heart failure- Acute on chronic diastolic 2. Pulmonary embolisim 3. Acute on chronic respiratory failure 4. Chronic abdominal pain 5. Dysathria 6. Pyuria - History Past Medical History: CAD, COPD, diabetes, hypertension, hyperlipidemia, stroke Past Surgical History: Other Social history: lives with family - Allergies and Medications Current Medications: Allergies No Known Allergies Allergy (Verified 12/09/17 06:45) Home Medications Medication Instructions Recorded Confirmed Last Taken Type Furosemide [Lasix] 40 mg PO DAILY 01/22/13 09/30/17 1 Day Ago History ~12/09/16 Lisinopril [Zestril TAB] 40 mg PO DAILY 01/22/13 09/30/17 1 Day Ago History ~12/09/16 levETIRAcetam [Keppra XR TAB] 500 mg PO BID 01/22/13 09/30/17 1 Day Ago History ~12/09/16 glipiZIDE [Glucotrol] 10 mg PO DAILY 05/10/14 09/30/17 1 Day Ago History ~12/09/16 Amlodipine Besylate [Norvasc] 10 mg PO DAILY 09/30/17 09/30/17 Unknown History Doxazosin [Cardura] 4 mg PO BID 09/30/17 09/30/17 Unknown History Insulin Glargine,Hum.rec.anlog 40 units SQ QHS 09/30/17 09/30/17 Unknown History [Lantus] Ondansetron [Zofran Odt] 4 mg PO Q8HR PRN #14 tab.rapdis 09/30/17 Unknown Rx Sitagliptin Phosphate [Januvia] 100 mg PO DAILY 09/30/17 09/30/17 Unknown History traMADol [Ultram 50 MG tab] 50 mg PO Q4HR PRN #14 tablet 09/30/17 Unknown Rx Active Medications Acetaminophen (Tylenol) 650 mg PO Q4H PRN PRN Reason: Pain MILD(1-3)/Fever >100.5/PITT Amlodipine Besylate (Norvasc) 10 mg PO DAILY JAVED Docusate Sodium (Colace) 100 mg PO BID JAVED Doxazosin Mesylate (Cardura) 4 mg PO BID JAVED Furosemide (Lasix) 40 mg IV QDAY JAVED Glipizide (Glucotrol) 10 mg PO DAILY JAVED Insulin Glargine (Lantus) 40 units SUB-Q QHS JAVED Levetiracetam (Keppra) 500 mg PO BID JAVED Linagliptin (Tradjenta) 5 mg PO QDAY JAVED Lisinopril (Zestril) 40 mg PO DAILY JAVED Morphine Sulfate (Morphine) 2 mg IV Q4H PRN PRN Reason: Pain, Moderate (4-6) Ondansetron HCl (Zofran) 4 mg IV Q4H PRN PRN Reason: Nausea And Vomiting Sodium Chloride (Sodium Chloride Flush Syringe 10 Ml) 10 ml IV PRN PRN PRN Reason: LINE FLUSH Tramadol HCl (Ultram) 50 mg PO Q4H PRN PRN Reason: Pain Warfarin Sodium (Coumadin) 10 mg PO DAILY@1700 JAVED; Protocol - Physical exam General appearance: mild distress HEENT: Atraumatic, PERRLA Lungs: Other (CRACKLES) Breasts: deferred Heart: Regular rate, Normal S1, Normal S2, No murmurs Gastrointestinal: normal, normoactive bowel sounds Male Genitourinary: deferred Rectal Exam: deferred Extremities: no ischemia, pulses intact - Disposition Condition at discharge: Stable Disposition: DC-50 TO HOSPICE (HOME) Short Stay Discharge Plan Follow up with: PRIMARY CARE, [Primary Care Provider] - 3-5 Days
[2017-12-09] MEDS ORDERED: COUMADIN PO SCH (17:00)
[2017-12-09] MEDS ORDERED: COLACE PO SCH (22:00)
[2017-12-09] MEDS ORDERED: KEPPRA PO SCH (22:00)
[2017-12-09] MEDS ORDERED: CARDURA PO SCH (22:00)
[2017-12-09] MEDS ORDERED: LEVETIRACETAM 500 MG PO SCH (22:00)
[2017-12-09] MEDS ORDERED: LANTUS SUB-Q SCH (22:00)
[2017-12-10] MEDS ORDERED: NORVASC PO SCH (10:00)
[2017-12-10] MEDS ORDERED: LASIX IV SCH (10:00)
[2017-12-10] MEDS ORDERED: TRADJENTA PO SCH (10:00)
[2017-12-10] MEDS ORDERED: LASIX PO SCH (10:00)
[2017-12-10] MEDS ORDERED: NON-FORMULARY (Sitagliptin Phosphate [Januvia] 100 MG) PO SCH (10:00)
[2017-12-10] MEDS ORDERED: ZESTRIL PO SCH (10:00)
[2017-12-10] MEDS ORDERED: GLUCOTROL PO SCH (10:00)
== END 2017-12-09 14:41 | disposition hospice, home (50) ==
LOC: ED 06:38
DX: I50.33 Acute on chronic diastolic (congestive) heart failure (principal); I27.82 Chronic pulmonary embolism; G89.29 Other chronic pain; R94.31 Abnormal electrocardiogram [ECG] [EKG]; R10.13 Epigastric pain; I11.0 Hypertensive heart disease with heart failure; I50.9 Heart failure, unspecified; J44.9 Chronic obstructive pulmonary disease, unspecified; Z86.718 Personal history of other venous thrombosis and embolism; Z79.899 Other long term (current) drug therapy
CPT/HCPCS: 36415; 71045; 71275; 74177; 76705; 80053; 81001; 82140; 82550; 82553; 82803; 82962; 83690; 83735; 83880; 84484; 85025; 85379; 85610; 85730; 93005; 93010; 96374; 96375; 96376; 99285; J1940; J2405; J7030; Q9967